=== PATIENT | female | born 1945 | race Caucasian/White ===

== ENCOUNTER → 2018-05-13 | Outpatient (CLI) | payer MEDICARE | END | disposition home or self-care (01) | LOC: KCIC MAMMO 08:46 | DX: N63.21 Unspecified lump in the left breast, upper outer quadrant (principal) | CPT/HCPCS: 76641; 77065; G0279 ==

== ENCOUNTER → 2018-10-18 | Outpatient (CLI) | payer MEDICARE ==
[~2018-10-18] MED LIST: LOSA1TAB25 PO; METF500T16 PO; METO-239 PO
--- NOTE | 2018-10-18 11:52 | RAD ---
EXAM: Pelvis and left hip, 2 views. HISTORY: Groin pain. COMPARISON: None. FINDINGS: A frontal view the pelvis and frog-leg view the left hip are obtained. There is left hip joint space narrowing with degenerative subchondral sclerosis, subchondral cyst formation and marginal spurring. There is degenerative change of the lower lumbar levels. IMPRESSION: 1. Mild left and minimal right hip osteoarthritis. 2. No acute osseous finding. Electronically signed by: Natacha Biswas MD (10/18/2018 11:48 AM) [facility]
== END | disposition home or self-care (01) ==
LOC: RAD 11:19
PROVIDERS: ATTEND Physical Medicine & Rehabilitation
DX: M16.0 Bilateral primary osteoarthritis of hip (principal)
CPT/HCPCS: 73501

== ENCOUNTER → 2018-10-19 | Outpatient (CLI) | payer MEDICARE ==
[~2018-10-19] MED LIST changes: +BUPIVACAINE MPF 0.5% 10 ML VIAL for KCIC. IM ONE; +IOHEXOL 300 MG/ML 50 ML VIAL. INT ART ONE; +LIDOCAINE 1% Multi-Dose 20 ML VIAL. IM ONE; +methylPREDNISolone ACETATE 40 MG/ML VIAL. INT ART ONE
--- NOTE | 2018-10-19 14:38 | KCIC ---
EXAM: Left hip injection WITH Fluoroscopic guidance DATE: 10/19/2018 1:00 PM CLINICAL HISTORY: Left hip pain. Left hip osteoarthritis. Back pain. History of knee arthroplasty. COMPARISON: Pelvic radiographs 10/18/2018 TECHNIQUE: The patient was informed of the indications and alternatives for this procedure as well as risks and benefits. No immediate contraindication identified. The patient provided informed, written consent. Laterality was confirmed by the entire team following a time out. Following initial left hip joint localization, a suitable area was sterilely prepped and draped. Local anesthesia was administered with 1% xylocaine. With intermittent fluoroscopic observation, a 22-gauge spinal needle was advanced into the left hip joint sheath/capsule with confirmation of intra-synovial position with infusion of less than 1 cc iodinated contrast. Subsequent infusion cocktail containing 1 mL of 80 mg/mL Depo-Medrol, 3 mL of lidocaine 1% and 3 mL bupivacaine 0.5%. Hemostasis with local pressure. Local clinical exam negative for immediate complication. Patient informed re local potential signs or symptoms that may indicate need to return to ER/Ordering physician for further evaluation. Patient informed re precautionary measures after intra-synovial injection of anesthetic. Patient informed regarding potential for short term increase local symptomatology due to steroid flare. Patient expressed understanding. Performing Physicians: Dr. Garfield Francois Blood Loss: 0 cc Total Fluoroscopy time: 9 seconds Total spot images taken: 0 IMPRESSION: Successful intra-synovial injection left hip joint with steroid and anesthetic per clinical request. Electronically signed by: Román Francois MD (10/19/2018 2:35 PM) [facility]
== END | disposition home or self-care (01) ==
LOC: KCIC 12:40
PROVIDERS: ATTEND Physical Medicine & Rehabilitation
DX: M16.12 Unilateral primary osteoarthritis, left hip (principal); Z79.899 Other long term (current) drug therapy
CPT/HCPCS: 20610; 77002; J1030; Q9967

== ENCOUNTER → 2018-11-17 | Outpatient (CLI) | payer MEDICARE ==
[~2018-11-17] MED LIST changes: -BUPIVACAINE MPF 0.5% 10 ML VIAL for KCIC. IM ONE; -IOHEXOL 300 MG/ML 50 ML VIAL. INT ART ONE; -LIDOCAINE 1% Multi-Dose 20 ML VIAL. IM ONE; -methylPREDNISolone ACETATE 40 MG/ML VIAL. INT ART ONE
--- NOTE | 2018-11-17 10:44 | KCIC ---
Bilateral diagnostic digital mammograms with 3-D tomosynthesis: Reason for examination: Follow-up nodule. Comparison is made to previous studies dated back to 08/07/2014. Bilateral mammograms in CC and oblique projections were obtained with 2-D imaging and 3-D tomosynthesis imaging on a Siemens Inspiration unit and reviewed on the workstation. Interpretation was made with the benefit of CAD. The skin and nipples show no abnormalities. No abnormal axillary lymph nodes are seen. The breast parenchyma shows scattered fatty and fibroglandular density. (Breast density: Category B.) There continues to be asymmetric parenchyma in the subareolar 12:00 position of the left breast anteriorly which is stable. There is a small nodule consistent with an intramammary lymph node. There are no new dominant masses, suspicious calcifications or architectural distortion. Impression: No evidence of malignancy. Ultrasound to follow. BI-RAD Category 0: Incomplete. Needs additional imaging evaluation. Left breast ultrasound: Comparison is made to previous study dated 05/13/2018. Ultrasound examination of the left breast was performed in the areas of previous concern and at the left axilla. There continues to be focal dense fibroglandular tissue in the 2:00 position 3 cm from the nipple contains some ductal dilatation fibrocystic change. This appears to be stable. At the 2:30 position 7 cm from the nipple, there continues to be 1.4 cm hypoechoic lesion consistent with a probable fibroadenoma. There is a small 3.4 mm fibrocystic lesion at the 2:30 position 5 cm from the nipple. This is stable. There are no suspicious lesions identified. No abnormal appearing lymph nodes are seen. IMPRESSION: Stable nodule at the 2:30 position 7 cm from the nipple which probably represents a fibroadenoma. Fibrocystic change at the 2:30 position 5 cm from the nipple which is stable. No suspicious abnormalities seen. Recommend continued 6 month sonographic follow-up. BI-RADS Category 3: Probably Benign. "Our facility is accredited by the [employer] Mammography Program." This patient's information has been entered into a reminder system for the patient to be notified with the results of her examination and a target date for the next mammogram. Electronically signed by: Tori Garcia MD (11/17/2018 10:40 AM) [facility]
== END | disposition home or self-care (01) ==
LOC: KCIC MAMMO 09:00
PROVIDERS: ATTEND Obstetrics & Gynecology
DX: R92.8 Other abnormal and inconclusive findings on diagnostic imaging of breast (principal); N63.11 Unspecified lump in the right breast, upper outer quadrant
CPT/HCPCS: 76641; 77066; G0279; 77062

== ENCOUNTER → 2019-04-06 | Outpatient (CLI) | payer MEDICARE ==
--- NOTE | 2019-04-06 08:37 | KCIC ---
EXAM: Left breast sonogram. HISTORY: 73-year-old female presents for 6 month follow-up evaluation of suspected benign lesions within the left breast demonstrated on a sonogram dated 11/17/2018. TECHNIQUE: Sonographic imaging of the left breast including all 4 quadrants and the retroareolar region was performed. COMPARISON: 11/17/2018. FINDINGS: There is focal fibrocystic change at the 2:30 position 7 cm from the nipple. The previously demonstrated 1.4 cm hypoechoic lesion appears to blend with surrounding breast parenchyma, favoring a benign fibrocystic lesion rather than fibroadenoma or alternative solid lesion. Similarly, the previously demonstrated suspected fibrocystic lesion measuring 3.4 mm at the 2:30 position 5 cm from the nipple is no longer conspicuous. There is a 4.5 mm nodule with internal echogenicity at the 3:00 position 6 cm from the nipple, the appearance of which favors an intramammary lymph node with benign fatty hilum. IMPRESSION: 1. Decreased conspicuity of a previously suspected fibroadenoma at the 2:30 position 7 cm from the nipple. This appears to blend with surrounding parenchyma on the current exam, favoring a benign fibrocystic lesion superimposed on fibrocystic changes. Similarly, the previously suspected tiny fibrocystic lesion at the 2:30 position 5 cm from the nipple is no longer seen. 2. Small suspected intramammary lymph node at the 3:00 position 6 cm from the nipple. This was not appreciated on the prior exam. 3. BI-RADS Category 3: Probably benign finding(s). Precautionary short-term follow up with a left breast sonogram in 7 months is recommended to confirm benignity and correspond with a previously established bilateral mammography interval. Electronically signed by: Natacha Biswas MD (04/06/2019 8:34 AM) [facility]
== END | disposition home or self-care (01) ==
LOC: KCIC US 07:51
PROVIDERS: ATTEND Obstetrics & Gynecology
DX: N64.89 Other specified disorders of breast (principal)
CPT/HCPCS: 76641

== ENCOUNTER → 2019-11-11 | Outpatient (CLI) | payer MEDICARE ==
[2019-10-25 12:47] VITALS: BP 111/72
--- NOTE | 2019-11-11 16:35 | RAD ---
ULTRASOUND-GUIDED FINE-NEEDLE ASPIRATION OF THE RIGHT LOBE OF THE THYROID GLAND History: Diffuse heterogeneous enlargement of the right lobe of the thyroid gland by a thyroid nodule. Procedure: The patient provided both verbal and written consent after the procedure and possible complications including bleeding and infection were explained. A timeout was performed which confirmed the name of the patient and the date of and the type of procedure and the side of the procedure. Allergies to medications were reviewed. Sonography of the thyroid gland was performed and an appropriate skin felix was made. The anterior aspect of the right side of the neck was prepped and draped in the usual sterile fashion with ChloraPrep. A total of 2 cc of 1% lidocaine was utilized for local anesthesia. Using sterile technique and ultrasound guidance, 4 separate 25-gauge fine-needle aspirations of the solid nodule of the right lobe of the thyroid gland were performed. Sonographic spot images were performed. These aspirations were processed immediately by the pathologist Dr. Jet Benz. Small superficial hematoma was noted and manual pressure was applied for 5 minutes. Hemostasis was deemed adequate. Post procedure sonography demonstrated a small superficial hematoma. The patient tolerated the procedure well without complication otherwise. Sterile Band-Aid was applied to right side of the neck. The patient was given instructions to return to the emergency room if there is significant swelling or bleeding in the neck. The patient was instructed to take Tylenol for any discomfort and to apply ice to the right side of the neck for any swelling. IMPRESSION: Ultrasound-guided fine-needle aspiration biopsy of the solid nodule of the right lobe of the thyroid gland was performed without complication. Follow-up will be with the patient's physician. ULTRASOUND-GUIDED FINE-NEEDLE ASPIRATION OF THE LEFT LOBE OF THE THYROID GLAND History: Diffuse heterogeneous enlargement of the left lobe of the thyroid gland by thyroid nodule. Procedure: The patient provided both verbal and written consent after the procedure and possible complications including bleeding and infection were explained. A timeout was performed which confirmed the name of the patient and the date of and the type of procedure and the side of the procedure. Allergies to medications were reviewed. Sonography of the thyroid gland was performed and an appropriate skin felix was made. The anterior aspect of the left side of the neck was prepped and draped in the usual sterile fashion with ChloraPrep. A total of 2 cc of 1% lidocaine was utilized for local anesthesia. Using sterile technique and ultrasound guidance, 4 separate 25-gauge fine-needle aspirations of the solid nodule of the left lobe of the thyroid gland were performed. Sonographic spot images were performed. These aspirations were processed immediately by the pathologist Dr. Jet Benz. Hemostasis was deemed adequate after 3 minutes of manual pressure. Post procedure sonography demonstrated no significant hematoma. The patient tolerated the procedure well without complication. Sterile Band-Aid was applied to left side of the neck. The patient was given instructions to return to the emergency room if there is significant swelling or bleeding in the neck. The patient was instructed to take Tylenol for any discomfort and to apply ice to the left side of the neck for any swelling. IMPRESSION: Ultrasound-guided fine-needle aspiration biopsy of the solid nodule of the left lobe of the thyroid gland was performed without complication. Follow-up will be with the patient's physician. Note-a third nodule was reported on an outside thyroid ultrasound study. Sonography today demonstrated an area of acoustic shadowing within the lower aspect of the neck corresponding to the third nodule seen previously. This represents tracheal cartilage within the lower aspect of the neck. There is additional coarse calcification within the right lobe which is separate from this. Therefore, no discrete third nodule is identified and therefore, no third nodule was biopsied. Electronically signed by: Bruce Matthew MD (11/11/2019 4:32 PM) [facility]
--- NOTE | 2019-11-15 14:06 | PATHOLOGY ---
Note [facility] Accession Number: [id number] TESTS RESULT FLAG UNITS REF RANGE LAB Clinician Provided Cytology Information No. of containers..01 Other (Miscellaneous) Source: RT SUP THYROID DIAGNOSIS: RT SUP THYROID NEGATIVE FOR MALIGNANT CELLS. BETHESDA CATEGORY II. SPECIMEN CONSISTS OF ABUNDANT BENIGN FOLLICULAR CELLS, HEMOSIDERIN-LADEN MACROPHAGES, SCANT COLLOID AND BLOOD. THE PATTERN IS CONSISTENT WITH ADENOMATOID NODULE. COLLOID IS PRESENT. Pathologist ICD10: 02 E04.1 Signed out by: Jl Tello MD, Pathologist NPI- [id number] Performed by: Lea Pat, Front Desk Supervisor ([facility]) Gross description: 01 30MOL, PINK, CLOUDY /LCS 11/14/2019 1545 Local FLAG LEGEND: L-Low Normal,H-High Normal,LL-Alert Low,HH-Alert High <-Panic Low,>-Panic High,A-Abnormal,AA-Critical Abnormal Performed at: [facility] [address] [place] [address] Gerardo Dorado MD, 02 [facility] [address] [place] [address] Jet Benz MD, Specimen Comment: A courtesy copy of this report has been sent to [phone] Specimen Comment: [id number] Specimen Comment: Report sent to Performed at: [address], [place], [place] [id number] MD Gerardo Dorado MD Phone: [phone]
--- NOTE | 2019-11-15 14:06 | PATHOLOGY ---
Note [facility] Accession Number: [id number] TESTS RESULT FLAG UNITS REF RANGE LAB Clinician Provided Cytology Information No. of containers..01 Other (Miscellaneous) Source: LT THYROID DIAGNOSIS: LT THYROID NEGATIVE FOR MALIGNANT CELLS. BETHESDA CATEGORY II. SPECIMEN CONSISTS OF BENIGN FOLLICULAR CELLS, HEMOSIDERIN-LADEN MACROPHAGES, COLLOID, AND BLOOD. THIS PATTERN IS CONSISTENT WITH A BENIGN FOLLICULAR NODULE. THIS INTERPRETATION INCLUDES EVALUATION OF A CELL BLOCK. Pathologist ICD10: 02 E04.1 Signed out by: 02 Jl Tello MD, Pathologist NPI- [id number] Performed by: Peg Dobson, Pack Worker ([facility]) Gross description: 01 30ML, PINK, CLEAR /LCS 11/14/2019 1547 Local FLAG LEGEND: L-Low Normal,H-High Normal,LL-Alert Low,HH-Alert High <-Panic Low,>-Panic High,A-Abnormal,AA-Critical Abnormal Performed at: [facility] [address] [place] [address] [address] [place] [address] Gerardo Dorado MD, 02 [facility] [address] [place] [address] Jet Benz MD, Specimen Comment: [id number] Performed at: [address], [place], [place] [id number] MD Gerardo Dorado MD Phone: [phone]
== END | disposition home or self-care (01) ==
LOC: US 12:45
PROVIDERS: ATTEND Family Medicine
DX: E04.1 Nontoxic single thyroid nodule (principal)
CPT/HCPCS: 10005; 10006; 60300; 76942; 88173; 88305

== ENCOUNTER → 2019-11-28 | Outpatient (CLI) | payer MEDICARE ==
[2019-10-25 12:47] VITALS: BP 111/72
--- NOTE | 2019-11-28 14:28 | KCIC ---
Bilateral diagnostic digital mammograms with 3-D tomosynthesis: Reason for examination: Follow-up asymmetry. Comparison is made to previous studies dated 11/17/2018 and 05/13/2018. Bilateral mammograms in CC and oblique projections were obtained with 2-D imaging and 3-D tomosynthesis imaging on a Siemens Inspiration unit and reviewed on the workstation. Interpretation was made with the benefit of CAD. The skin and nipples show no abnormalities. No abnormal axillary lymph nodes are seen. The breast parenchyma shows scattered fatty and fibroglandular density. (Breast density: Category B.) There continues to be some asymmetric parenchyma in the left breast anteriorly which is stable. There R small intramammary lymph nodes bilaterally which are stable. There are no new dominant masses, suspicious calcifications or architectural distortion. Impression: No evidence of malignancy. Ultrasound to follow. BI-RAD Category 0: Incomplete. Needs additional imaging evaluation. Left breast ultrasound: Comparison is made to previous study dated 04/06/2019 and 11/17/2018. Ultrasound examination of the left breast and axilla was performed. There continues to be a small nodule consistent with an intramammary lymph node at the 3:00 position 6 cm from the nipple measuring approximately 4 mm in greatest dimension which is unchanged. There are no other cystic or solid nodules seen. No abnormal appearing lymph nodes are seen in the axilla. IMPRESSION: Small intramammary lymph node at the 3:00 position. No suspicious abnormality seen. Recommend routine mammographic follow-up. BI-RADS Category 2: Benign. "Our facility is accredited by the [employer] Mammography Program." This patient's information has been entered into a reminder system for the patient to be notified with the results of her examination and a target date for the next mammogram. Electronically signed by: Tori Garcia MD (11/28/2019 2:25 PM) [facility]
== END | disposition home or self-care (01) ==
LOC: KCIC MAMMO 12:53
PROVIDERS: ATTEND Obstetrics & Gynecology
DX: D48.62 Neoplasm of uncertain behavior of left breast (principal); R59.0 Localized enlarged lymph nodes
CPT/HCPCS: 76641; 77066; G0279; 77062

== ENCOUNTER 2020-01-01 18:43 | Emergency (ER) | payer MEDICARE ==
[~2020-01-01] VITALS: Ht 167.6 cm; Wt 116.0 kg
[~2020-01-01 18:43] MED LIST changes: +ASPI-630 PO; +ATOR20TA58 PO; +CELE200C PO; +CHOL200027 PO; +CYAN250012 PO; +CYCL1DRO EACHEYE; +HYDR50TA6 PO; +LOSA100T14 PO; +METO25TA4 PO; +MULT-121 PO; +OMEG-150 PO; +OMEP40CA45 PO; +OXYC5CAP PO; +UBID50TA PO; +VENL75TA PO; +VENTOLIN HFA18 GM INH; +WARF-31 PO
[2020-01-01 18:50] VITALS: BP 162/75
--- NOTE | 2020-01-01 19:05 | PHYS DOC ---
Past Medical History Smoking Status: Never Smoker Adult General Chief Complaint Chief Complaint: POST-OP PROBLEM HPI HPI 74-year-old female with history of diabetes, recent left hip replacement approximately 3 weeks ago presents to the emergency department with complaints of bleeding from operative site. Patient states this started prostate half-hour ago. She is bleeding through couple pads to the area, appears to be bruising on examination. Patient does take Coumadin. She states she was seen by Dr. Shen on 28 December with plans to see him this Thursday. Patient denies any fever, chills. States physical therapy and rehabilitation have been going well status post replacement. She was concerned given the bruising and continued bleeding. She denies any chest pain, shortness breath, nausea, vomiting. Review of Systems Review of Systems Constitutional: Denies fever or chills [] Respiratory: Denies cough or shortness of breath [] Cardiovascular: No additional information not addressed in HPI [] GI: Denies abdominal pain, nausea, vomiting, bloody stools or diarrhea [] Musculoskeletal: bleeding from left hip surgical site Neurologic: Denies headache, focal weakness or sensory changes [] All other systems were reviewed and found to be within normal limits, except as documented in this note. Allergies Allergies Allergies Coded Allergies Type Severity Reaction Last Updated Verified No Known Drug Allergies 12/13/19 No Physical Exam Physical Exam Constitutional: Well developed, well nourished, no acute distress, non-toxic appearance. [] Cardiovascular:Heart rate regular rhythm, no murmur [] Lungs & Thorax: Bilateral breath sounds clear to auscultation [] Skin: Warm, dry, no erythema, no rash. [] Back: No tenderness, no CVA tenderness. [] Extremities: No tenderness, no edema, surgical site left hip with some sutures removed per melissa, bleeding/oozing from surgical site, no dehiscence appreciated [] Neurologic: Alert and oriented X 3, no focal deficits noted. [] Psychologic: Affect normal, judgement normal, mood normal. [] Current Patient Data Vital Signs Vital Signs Date Time Temp Pulse Resp B/P (MAP) Pulse Ox O2 Delivery O2 Flow Rate FiO2 01/01/20 18:50 98.1 80 27 162/75 (104) 98 Room Air 98.1 Lab Values Laboratory Tests Test 01/01/20 19:51 White Blood Count 3.3 x10^3/uL (4.0-11.0) L Red Blood Count 2.81 x10^6/uL (3.50-5.40) L Hemoglobin 8.5 g/dL (12.0-15.5) L Hematocrit 25.1 % (36.0-47.0) L Mean Corpuscular Volume 89 fL (79-100) Mean Corpuscular Hemoglobin 30 pg (25-35) Mean Corpuscular Hemoglobin Concent 34 g/dL (31-37) Red Cell Distribution Width 14.2 % (11.5-14.5) Platelet Count 311 x10^3/uL (140-400) Neutrophils (%) (Auto) 57 % (31-73) Lymphocytes (%) (Auto) 28 % (24-48) Monocytes (%) (Auto) 10 % (0-9) H Eosinophils (%) (Auto) 4 % (0-3) H Basophils (%) (Auto) 1 % (0-3) Neutrophils # (Auto) 1.9 x10^3/uL (1.8-7.7) Lymphocytes # (Auto) 0.9 x10^3/uL (1.0-4.8) L Monocytes # (Auto) 0.3 x10^3/uL (0.0-1.1) Eosinophils # (Auto) 0.1 x10^3/uL (0.0-0.7) Basophils # (Auto) 0.0 x10^3/uL (0.0-0.2) Prothrombin Time 23.4 SEC (11.7-14.0) H Prothrombin Time INR 2.1 (0.8-1.1) H Sodium Level 141 mmol/L (136-145) Potassium Level 3.9 mmol/L (3.5-5.1) Chloride Level 106 mmol/L (98-107) Carbon Dioxide Level 28 mmol/L (21-32) Anion Gap 7 (6-14) Blood Urea Nitrogen 22 mg/dL (7-20) H Creatinine 0.9 mg/dL (0.6-1.0) Estimated GFR (Cockcroft-Gault) 61.5 BUN/Creatinine Ratio 24 (6-20) H Glucose Level 116 mg/dL (70-99) H Calcium Level 8.7 mg/dL (8.5-10.1) Total Bilirubin 0.4 mg/dL (0.2-1.0) Aspartate Amino Transferase (AST) 23 U/L (15-37) Alanine Aminotransferase (ALT) 19 U/L (14-59) Alkaline Phosphatase 85 U/L (46-116) Total Protein 6.2 g/dL (6.4-8.2) L Albumin 2.8 g/dL (3.4-5.0) L Albumin/Globulin Ratio 0.8 (1.0-1.7) L Laboratory Tests 01/01/20 19:51 Laboratory Tests 01/01/20 19:51 EKG EKG [] Radiology/Procedures Radiology/Procedures [][facility] [address] [place] [address] IMAGING REPORT Signed PATIENT: JEAN MÁRQUEZ ACCOUNT: [id number] : 1945 LOCATION: ER AGE: 74 SEX: F EXAM STATUS: PRE ER ORD. PHYSICIAN: GIO ARENAS MD REASON: recent hip replacement, bleeding from surgical site, ?hematoma PROCEDURE: CT LOWER EXTREMITY WO LEFT Exam: CT left lower extremity without contrast INDICATION: Recent hip replacement TECHNIQUE: Sequential axial images through the left lower extremity obtained without IV contrast. Sagittal and coronal reformatted images were reconstructed from the axial data and reviewed. Comparisons: None FINDINGS: Diverticulosis in the visualized sigmoid colon. Otherwise, visualized pelvic structures are unremarkable. Right hip arthroplasty changes are noted. There is mild soft tissue swelling at the level of the hip with a ill-defined amount of fluid laterally in the subcutaneous fat measuring approximately 9.5 x 2.0 cm in transverse dimension. Right hip arthroplasty changes are also noted. IMPRESSION: 1. Right hip and right knee arthroplasty changes. 2. Small amount of fluid is noted in the subcutaneous fat lateral to the hip arthroplasty measuring approximately 9.5 x 2.0 cm, likely tracking to the skin surface. Exposure: One or more of the following in the visualized dose reduction techniques were utilized for this examination: 1. Automated exposure control 2. Adjustment of the MA and/or KV according to patient size 3. Use of iterative of reconstructive technique Electronically signed by: Jaime Martins MD (01/01/2020 7:41 PM) [id number] DICTATED and SIGNED BY: JAIME MARTINS MD DATE: 01/01/201940 Course & Med Decision Making Course & Med Decision Making Pertinent Labs and Imaging studies reviewed. (See chart for details) []74-year-old female with history of diabetes, recent left hip replacement approximately 3 weeks ago presents to the emergency department with complaints of bleeding from operative site. Patient states this started prostate half-hour ago. She is bleeding through couple pads to the area, appears to be bruising on examination. Patient does take Coumadin. She states she was seen by Dr. Shen on 28 December with plans to see him this Thursday. Patient denies any fever, chills. States physical therapy and rehabilitation have been going well status post replacement. She was concerned given the bruising and continued bleeding. She denies any chest pain, shortness breath, nausea, vomiting. CT findings reviewed INR 2.1, hgb 8.[address] HEAD - will see patient in office tomorrow Pressure dressing/surgifoam applied Discussed with patient/family Dragon Disclaimer Dragon Disclaimer This electronic medical record was generated, in whole or in part, using a voice recognition dictation system. Departure Departure Impression: Primary Impression: Post-op bleeding Disposition: HOME, SELF-CARE Condition: STABLE Referrals: MICKI ORDOÑEZ MD (PCP) Patient Instructions: Postsurgical Bleeding Additional Instructions: Recommend calling DR. HEAD office in AM for follow up Recommend continuing current coumadin as directed INR 2.1, Hgb 8.5 CT without evidence of inflammatory process - 9x2cm fluid collection No signs of infection appreciated Problem Qualifiers Primary Impression: Post-op bleeding Surgical complication system/body Area: musculoskeletal system Procedure type: musculoskeletal Qualified Codes: M96.830 - Postprocedural hemorrhage of a musculoskeletal structure following a musculoskeletal system procedure GIO ARENAS MD Jan 01, 2020 19:05
--- NOTE | 2020-01-01 19:44 | RAD ---
Exam: CT left lower extremity without contrast INDICATION: Recent hip replacement TECHNIQUE: Sequential axial images through the left lower extremity obtained without IV contrast. Sagittal and coronal reformatted images were reconstructed from the axial data and reviewed. Comparisons: None FINDINGS: Diverticulosis in the visualized sigmoid colon. Otherwise, visualized pelvic structures are unremarkable. Right hip arthroplasty changes are noted. There is mild soft tissue swelling at the level of the hip with a ill-defined amount of fluid laterally in the subcutaneous fat measuring approximately 9.5 x 2.0 cm in transverse dimension. Right hip arthroplasty changes are also noted. IMPRESSION: 1. Right hip and right knee arthroplasty changes. 2. Small amount of fluid is noted in the subcutaneous fat lateral to the hip arthroplasty measuring approximately 9.5 x 2.0 cm, likely tracking to the skin surface. Exposure: One or more of the following in the visualized dose reduction techniques were utilized for this examination: 1. Automated exposure control 2. Adjustment of the MA and/or KV according to patient size 3. Use of iterative of reconstructive technique Electronically signed by: Jaime Hargrove MD (01/01/2020 7:41 PM) [id number]
[2020-01-01 20:00] LABS: BASO % 1 % (0-3); EOS # 0.1 x10^3/uL (0.0-0.7); EOS % 4 % (0-3); HEMATOCRIT 25.1 % (36.0-47.0); HEMOGLOBIN 8.5 g/dL (12.0-15.5); LYMPH # 0.9 x10^3/uL (1.0-4.8); LYMPH % 28 % (24-48); MEAN CORPUSCULAR HEMOGLOBIN 30 pg (25-35); MEAN CORPUSCULAR HGB CONC 34 g/dL (31-37); MEAN CORPUSCULAR VOLUME 89 fL (79-100); MONO # 0.3 x10^3/uL (0.0-1.1); MONO % 10 % (0-9); NEUT # 1.9 x10^3/uL (1.8-7.7); NEUT % 57 % (31-73); PLATELET COUNT 311 x10^3/uL (140-400); RED BLOOD COUNT 2.81 x10^6/uL (3.50-5.40); RED CELL DISTRIBUTION WIDTH 14.2 % (11.5-14.5); WHITE BLOOD COUNT 3.3 x10^3/uL (4.0-11.0)
[2020-01-01 20:08] LABS: CALCIUM 8.7 mg/dL (8.5-10.1); CREATININE 0.9 mg/dL (0.6-1.0); GFR 61.5; POTASSIUM 3.9 mmol/L (3.5-5.1); PROTHROMBIN TIME PATIENT 23.4 SEC (11.7-14.0)
[2020-01-01 20:15] LABS: ALBUMIN 2.8 g/dL (3.4-5.0); ALBUMIN/GLOBULIN RATIO 0.8 (1.0-1.7); TOTAL BILIRUBIN 0.4 mg/dL (0.2-1.0); TOTAL PROTEIN 6.2 g/dL (6.4-8.2)
[2020-01-01] MEDS: GELATIN SPONGE SIZE 12-7MM SPONGE. TP ONE (20:45)
== END 2020-01-01 21:15 | disposition home or self-care (01) ==
LOC: ER 18:43
DX: M96.830 Postprocedural hemorrhage of a musculoskeletal structure following a musculoskeletal system procedure (principal); E11.9 Type 2 diabetes mellitus without complications; Z96.642 Presence of left artificial hip joint; Y83.8 Other surgical procedures as the cause of abnormal reaction of the patient, or of later complication, without mention of misadventure at the time of the procedure; Y92.89 Other specified places as the place of occurrence of the external cause
CPT/HCPCS: 36415; 73700; 80053; 85025; 85610; 99285-25

== ENCOUNTER 2020-01-09 12:56 | Inpatient (IN) | payer MEDICARE ==
[2020-01-09] VITALS (8 sets, daily range): BP systolic 89–134; BP diastolic 37–54
[~2020-01-09] VITALS: Ht 167.6 cm; Wt 109.8 kg
[2020-01-09] MEDS ORDERED: IV RINGERS,LACTATED 1000ML 1,000 ML IV SCH (15:32)
[2020-01-09] MEDS ORDERED: LIDOCAINE 1% PF 2 ML VIAL. ID PRN (15:45)
[2020-01-09] MEDS ORDERED: PROCHLORPERAZINE 10 MG/2 ML VIAL. IV PRN (15:45)
[2020-01-09] MEDS ORDERED: ONDANSETRON PF 4 MG/2 ML VIAL. IV PRN (15:45)
[2020-01-09] MEDS ORDERED: MORPHINE SULFATE 2 MG/ML VIAL. IV PRN ×2 (15:45→19:00)
[2020-01-09] MEDS ORDERED: fentaNYL PF VIAL 100 MCG/2 ML VIAL IV PRN ×2 (15:45→19:00)
[2020-01-09] MEDS ORDERED: HYDROmorphone 2 MG/ML VIAL IV PRN (15:45)
[2020-01-09 17:12] LABS: BASO % 1 % (0-3); EOS # 0.1 x10^3/uL (0.0-0.7); EOS % 3 % (0-3); HEMATOCRIT 26.2 % (36.0-47.0); HEMOGLOBIN 8.8 g/dL (12.0-15.5); LYMPH # 1.2 x10^3/uL (1.0-4.8); LYMPH % 30 % (24-48); MEAN CORPUSCULAR HEMOGLOBIN 30 pg (25-35); MEAN CORPUSCULAR HGB CONC 34 g/dL (31-37); MEAN CORPUSCULAR VOLUME 88 fL (79-100); MONO # 0.4 x10^3/uL (0.0-1.1); MONO % 10 % (0-9); NEUT # 2.2 x10^3/uL (1.8-7.7); NEUT % 56 % (31-73); PLATELET COUNT 305 x10^3/uL (140-400); RED BLOOD COUNT 2.97 x10^6/uL (3.50-5.40)
[2020-01-09 17:18] LABS: POTASSIUM 3.4 mmol/L (3.5-5.1)
[2020-01-09 17:21] LABS: PROTHROMBIN TIME PATIENT 22.9 SEC (11.7-14.0)
[2020-01-09] MEDS ORDERED: fentaNYL PF VIAL 100 MCG/2 ML VIAL ONE (17:22)
[2020-01-09] MEDS ORDERED: ROCURONIUM 50 MG/5 ML VIAL. ONE (17:22)
[2020-01-09] MEDS ORDERED: PHENYLEPHRINE in 0.9% NACL PF 1 MG/10 ML SYRINGE. IV ONE (17:37)
[2020-01-09] MEDS ORDERED: ONDANSETRON PF 4 MG/2 ML VIAL. ONE (17:43)
[2020-01-09] MEDS ORDERED: DEXAMETHASONE SOD PHOS 4 MG/ML VIAL ONE (17:43)
[2020-01-09] MEDS ORDERED: PROPOFOL 20 ML IV ONE (17:43)
[2020-01-09] MEDS ORDERED: ceFAZolin SODIUM IV Push 1 GM VIAL. IVP ONE ×2 (17:43)
[2020-01-09] MEDS ORDERED: LIDOCAINE 2% PF 5 ML VIAL. ONE (17:43)
[2020-01-09] MEDS ORDERED: NEOSTIGMINE METHYLSULFATE 5 MG/5 ML SYRINGE. ONE (18:42)
[2020-01-09] MEDS ORDERED: GLYCOPYRROLATE 1 MG/5 ML VIAL. ONE ×2 (18:42→18:43)
[2020-01-09] MEDS ORDERED: diphenhydrAMINE 50 MG/ML VIAL IV PRN (19:00)
[2020-01-09] MEDS ORDERED: DEXTROSE 50% 25 GM / 50ML DISP.SYRIN. IV PRN (19:00)
[2020-01-09] MEDS ORDERED: 0.9 % SODIUM CHLORIDE 10 ML DISP.SYRIN. IV PRN (19:00)
[2020-01-09] MEDS ORDERED: PROCHLORPERAZINE 5 MG TABLET. PO PRN (19:00)
[2020-01-09] MEDS ORDERED: oxyCODONE IR 5 MG TABLET PO PRN (19:00)
[2020-01-09] MEDS ORDERED: SEVOFLURANE 61 TO 120 MINUTES. IH ONE (19:00)
[2020-01-09] MEDS ORDERED: CALCIUM CARBONATE 500 MG TAB.CHEW PO PRN (19:00)
[2020-01-09] MEDS ORDERED: ZOLPIDEM 5 MG TABLET. PO PRN (19:00)
[2020-01-09] MEDS ORDERED: ALBUTEROL SULFATE 2.5 MG/3 ML NEBU. NEB PRN (19:15)
[2020-01-09] MEDS: fentaNYL PF VIAL 100 MCG/2 ML VIAL IV PRN ×2 (19:16→19:26)
--- NOTE | 2020-01-09 19:23 | PDOC4 ---
Operative Note Operative Note Date of surgery: 01/09/2020 Preoperative diagnosis: Left hip wound drainage status post left total hip arthroplasty Postoperative diagnosis: Left hip seroma/hematoma Operative procedure: Irrigation debridement of left hip wound Surgeon: Ac Anesthesia: Gen. Estimated blood loss: 50 mL Complications: None Intraoperative culture sent for aerobic anaerobic Gram stain Operative indications: Lawanda is approximately one-month status post left total hip arthroplasty that required removal of a Hemovac drain fragment a couple of days postoperatively when it became stuck during removal. Otherwise postoperatively she progressed very well along with her ambulation and pain relief and had no drainage fever chills or other problems until return to a clinic visit where she had sutures removed and then experienced some persistent drainage from a small area just distal to the midpoint of her incision. That seemed to slow down and resolve over the next several days but then she presented to the emergency department with the sudden gush of some fluid serosanguineous in nature and she underwent a CT scan which showed a seroma hematoma collection. We decided at that point on some careful observation and prompt clinic follow-up and it appeared that perhaps most of the fluid collection had evacuated at that time as minimal drainage was expressed in clinic. Her wound was dressed and she was put on some prophylactic oral antibiotic and initially had minimal drainage but on subsequent follow-up drainage continued culminating in her visit today where I discussed with her recommended exploration due to the persistent drainage. She agreed and was direct admitted to the hospital with plans to proceed with exploration of her hip as soon as nothing by mouth status allowed today Operative text: Patient was identified procedure verified patient placed in the supine position on the operating table. After adequate amounts of general anesthesia were administered she was placed in the decubitus position left side up using the Stulberg hip positioner and all bony prominences were well-padded. Distal nylon sutures were removed and the left hip was then prepped and draped in the standard sterile fashion. After timeout was performed patient procedure identified and verified the hip wound was explored and found to have significant presence of seroma/hematoma all superficial to the fascia which appeared to be intact as I was unable to probe deeply into the joint. Swab cultures were obt ained at the deepest position of the seroma position and sharp debridement was carried out with rongeurs of any hematoma and any residual absorbable suture material. Antibiotics were withheld until cultures were obtained and then 2 g of IV cefazolin were given intraoperatively. Irrigation was carried out with normal saline solution and pulse lavage no purulence or devitalized tissue was noted and good bleeding tissues were noted throughout and closure carried out with running #1 PDS suture just superficial to the fascia #2-0 PDS suture in a buried fashion more superficially layered and skin closure with 3-0 nylon suture in primarily a vertical mattress fashion to obtain good wound apposition. I elected to place a wound VAC with a boundary layer given the significant amount of serous fluid apparent in her tissues. Wound VAC obtain good suction and she was returned to recovery room in stable condition having tolerated procedure well. LINDSEY KEYES MD Jan 09, 2020 19:23
[2020-01-09] MEDS: METOPROLOL TART IMMED RELEASE 25 MG TABLET. PO SCH (21:00)
[2020-01-09] MEDS: ATORVASTATIN CALCIUM 20 MG TABLET PO SCH (21:18)
[2020-01-09] MEDS: WARFARIN 5 MG TABLET. PO SCH (21:19)
[2020-01-10] MEDS: cycloSPORINE 0.05% OPHTH DROPERETTE. OU SCH ×3 (00:30→20:14)
[2020-01-10 03:00] VITALS: BP 102/46
[2020-01-10] MEDS ORDERED: MAGNESIUM HYDROXIDE 2,400 MG/30 ML ORAL.SUSP. PO PRN (06:00)
[2020-01-10] MEDS: ONDANSETRON PF 4 MG/2 ML VIAL. IV SCH ×4 (06:00→18:00)
[2020-01-10] MEDS: ONDANSETRON ODT 4 MG TAB.RAPDIS. PO SCH ×4 (06:00→18:00)
[2020-01-10] MEDS: IV NORMAL SALINE 1000ML BAG 1,000 ML IV SCH ×2 (06:01→19:30)
[2020-01-10] MEDS: PANTOPRAZOLE 40 MG TABLET.DR. PO SCH (06:06)
[2020-01-10] MEDS: traMADol 50 MG TABLET PO SCH ×3 (06:06→18:00)
[2020-01-10 07:00] VITALS: BP 114/46
[2020-01-10 07:20] LABS: PROTHROMBIN TIME PATIENT 24.1 SEC (11.7-14.0)
[2020-01-10] MEDS ORDERED: cycloSPORINE 0.05% OPHTH DROPERETTE. OU SCH (09:00)
[2020-01-10] MEDS: ACETAMINOPHEN 500 MG TABLET PO SCH ×3 (09:00→20:11)
[2020-01-10] MEDS ORDERED: MULTIVITAMIN PO SCH (09:00)
[2020-01-10] MEDS: LOSARTAN POTASSIUM 50 MG TABLET. PO SCH (09:06)
[2020-01-10] MEDS: SENNOSIDES/DOCUSATE 8.6/50MG TABLET. PO SCH (09:07)
[2020-01-10] MEDS: CELECOXIB 100 MG CAPSULE. PO SCH (09:07)
[2020-01-10] MEDS: METOPROLOL TART IMMED RELEASE 25 MG TABLET. PO SCH ×2 (09:07→20:13)
[2020-01-10] MEDS: VENLAFAXINE 75 MG TABLET. PO SCH (09:07)
[2020-01-10] MEDS: ASPIRIN CHEWABLE 81 MG TABLET. PO SCH (09:07)
[2020-01-10] MEDS: hydroCHLOROthiazide 25 MG TABLET PO SCH (09:07)
[2020-01-10] MEDS: CYANOCOBALAMIN (VITAMIN B-12) 1,000 MCG TABLET. PO SCH (09:07)
[2020-01-10] MEDS: CHOLECALCIFEROL (VITAMIN D3) 1,000 UNIT TABLET PO SCH (09:08)
[2020-01-10] MEDS: FERROUS SULFATE 325 MG TABLET. PO SCH ×2 (09:08→18:07)
[2020-01-10] MEDS: MULTIVITAMIN with MINERAL TABLET. PO SCH (09:08)
[2020-01-10] MEDS: metFORMIN 500 MG TABLET PO SCH ×2 (09:08→18:08)
--- NOTE | 2020-01-10 09:57 | NUR ---
SW following. Discussed with RN. Pt has wound vac, ID consult, wound consult. SW will continue to follow.
--- NOTE | 2020-01-10 10:41 | PDOC ---
Infectious Disease Note Vital Sign Vital Signs Vital Signs Date Time Temp Pulse Resp B/P (MAP) Pulse Ox O2 Delivery O2 Flow Rate FiO2 01/10/20 09:07 80 114/46 01/10/20 08:58 97 10.0 01/10/20 07:00 97.9 18 Room Air 97.9 Labs Lab Laboratory Tests Test 01/09/20 17:01 01/09/20 17:04 01/09/20 19:07 01/10/20 06:17 Glucose (Fingerstick) 77 mg/dL (70-99) 96 mg/dL (70-99) White Blood Count 4.0 x10^3/uL (4.0-11.0) Red Blood Count 2.97 x10^6/uL (3.50-5.40) Hemoglobin 8.8 g/dL (12.0-15.5) Hematocrit 26.2 % (36.0-47.0) Mean Corpuscular Volume 88 fL (79-100) Mean Corpuscular Hemoglobin 30 pg (25-35) Mean Corpuscular Hemoglobin Concent 34 g/dL (31-37) Red Cell Distribution Width 14.0 % (11.5-14.5) Platelet Count 305 x10^3/uL (140-400) Neutrophils (%) (Auto) 56 % (31-73) Lymphocytes (%) (Auto) 30 % (24-48) Monocytes (%) (Auto) 10 % (0-9) Eosinophils (%) (Auto) 3 % (0-3) Basophils (%) (Auto) 1 % (0-3) Neutrophils # (Auto) 2.2 x10^3/uL (1.8-7.7) Lymphocytes # (Auto) 1.2 x10^3/uL (1.0-4.8) Monocytes # (Auto) 0.4 x10^3/uL (0.0-1.1) Eosinophils # (Auto) 0.1 x10^3/uL (0.0-0.7) Basophils # (Auto) 0.0 x10^3/uL (0.0-0.2) Prothrombin Time 22.9 SEC (11.7-14.0) 24.1 SEC (11.7-14.0) Prothromb Time International Ratio 2.1 (0.8-1.1) 2.2 (0.8-1.1) Sodium Level 144 mmol/L (136-145) Potassium Level 3.4 mmol/L (3.5-5.1) Chloride Level 105 mmol/L (98-107) Carbon Dioxide Level 28 mmol/L (21-32) Anion Gap 11 (6-14) Test 01/10/20 08:19 Glucose (Fingerstick) 111 mg/dL (70-99) Objective Assessment pt seen, consult dictated Plan Plan of Care / EVERETTE AYON MD Jan 10, 2020 10:41
[2020-01-10 11:00] VITALS: BP 96/51
[2020-01-10] MEDS ORDERED: VANCOMYCIN 2 GM in IV NORMAL SALINE 500ML BAG 500 ML IV ONE (11:00)
[2020-01-10 11:17] LABS: ALBUMIN 2.7 g/dL (3.4-5.0); C-REACTIVE PROTEIN 18.3 mg/L (0-3.3); CALCIUM 8.4 mg/dL (8.5-10.1); CREATININE 0.7 mg/dL (0.6-1.0); GFR 82.3; POTASSIUM 4.1 mmol/L (3.5-5.1); TOTAL BILIRUBIN 0.3 mg/dL (0.2-1.0); TOTAL PROTEIN 5.4 g/dL (6.4-8.2)
[2020-01-10] MEDS ORDERED: ONDANSETRON ODT 4 MG TAB.RAPDIS. PO PRN (12:00)
[2020-01-10] MEDS ORDERED: ONDANSETRON PF 4 MG/2 ML VIAL. IV PRN (12:00)
--- NOTE | 2020-01-10 12:24 | CONS ---
DATE OF CONSULTATION: 01/10/2020 REQUESTING PHYSICIAN: Dr. Shen REASON FOR CONSULTATION: Possible infection of the left hip. HISTORY OF PRESENT ILLNESS: This is a 74-year-old female who had left total hip arthroplasty done on 12/13/2019 for arthritis. The patient says that when the sutures were removed about a few days after the surgery, she started bleeding and she had been bleeding since then off and on oozing blood. Hence, eventually she was taken to the surgery yesterday and I and D was done. The fascia was intact and it was all superficial and bloody drainage was evacuated and cultures were taken. The patient also received a few days of antibiotics as a part of her visit to Dr. Shen's office, which she does not remember what antibiotics. The patient did have a fever when she visited their office up to 101. The patient now denies any nausea, vomiting, diarrhea, chest pain, or shortness of breath. She denies any hip pain. She denies any other complaints other than the continued oozing of serosanguineous fluid from the hip. PAST MEDICAL HISTORY: Positive for rheumatoid arthritis, osteoarthritis, hypertension, hypothyroidism, valvular insufficiency, TIA in the past, diabetic, history of C. diff, asthma, and sleep apnea. The patient has had bilateral knee replacement done, thyroidectomy done, breast biopsy done, and now she had a jaw surgery done and this left hip replacement. SOCIAL HISTORY: Negative for smoking, alcohol use, or drug use. Lives with her . ALLERGIES: No known drug allergies. CURRENT MEDICATIONS: Reviewed. The patient is on cefazolin. REVIEW OF SYSTEMS: As per HPI. All other systems reviewed and are negative. PHYSICAL EXAMINATION: GENERAL: Alert and oriented female. Not in distress. VITAL SIGNS: Stable and afebrile. HEENT: NAD. NECK: Supple. No JVP. No lymphadenopathy. LUNGS: Clear. HEART: S1, S2 regular. ABDOMEN: Benign. EXTREMITIES: No edema or cyanosis. SKIN: Unremarkable. The patient does have a wound VAC on to the left hip. NEUROLOGIC: The patient is alert, awake, and appropriate. No focal neurologic deficit. LABORATORY DATA: White count is 4000, hemoglobin 8.8, and platelets are normal. Her last sed rate on 12/14/2019 was 33. BUN and creatinine on 01/01/2020 was normal, most recent is not available, which I ordered. Culture is taken and is not available right now, and CT scan from 01/01/2020 had shown this fluid collection measuring 9.5 x 2 cm into that hip. IMPRESSION: 1. Total hip arthroplasty on 12/13/2019. Post total hip arthroplasty, continued serosanguineous drainage and hence incision and drainage done on 01/09/2020. 2. Prediabetic. 3. Hypertension. 4. Hypothyroidism. 5. Obstructive sleep apnea. 6. Rheumatoid arthritis. 7. Osteoarthritis. RECOMMENDATIONS: We will change cefazolin to vancomycin and Zosyn for the time being and get sed rate, CRP, and procalcitonin. Supportive care and wait for the cultures. Discussion with the patient and the done at the bedside in detail. Thank you very much, Dr. Shen, for giving me the opportunity to participate in this patient's care. EVERETTE AYON MD DR: FINESSE/amber JOB#: [id number] / [id number]
[2020-01-10] MEDS: PIPERACILLIN/TAZOBACTAM 3.375 GM in IV NORMAL SALINE 50ML 50 ML IV SCH ×2 (13:21→18:07)
[2020-01-10] MEDS: VANCOMYCIN PER PHARMACY MC PRN ×2 (13:47→13:53)
--- NOTE | 2020-01-10 13:51 | NUR ---
Pharmacy Vancomycin Dosing Note S:Consulted to monitor and dose vancomycin started 01/10/20. O:JEAN MÁRQUEZ is a 74 year old F with Infected ANNABEL . Height: 5 feet, 6 inches Weight: 110 kg [place] Body Weight: 59.30 Adjusted Body Weight: 79.58 Dosing Weight: Actual Other Antibiotics: zosyn LABS: Last BUN: 11 Last Creatinine: 0.7 Creatinine Clearance: 64 mL/min Last WBC: 4 Last Procalcitonin: <0.1 Tmax (past 24 hours): 98 Microbiology: Pending I/O: 3340/650 Last dose given 01/10/20 at 1116 Vancomycin Dosing: Loading Dose: 2000 mg x1 Dosing Weight: Actual Target Trough: 15-20 A: Based on: weight and renal function P: 1. Begin Vancomycin 1500 mg IV q12h 2. Follow up Trough level on 01/11/20 at 2230 3. Pharmacy will continue to monitor, follow and adjust therapy as needed. Chelsey Han [facility], 01/10/20 0037
[2020-01-10 15:00] VITALS: BP 104/47
[2020-01-10] MEDS ORDERED: BISACODYL 10 MG SUPP.RECT. PR PRN (16:00)
--- NOTE | 2020-01-10 16:26 | NUR ---
Wound Care: Patient seen per wound care for wound vac assessment. Vac has good seal at 125mmHg continuous. Dressing is C/D/I. Will discuss with Dr. Shen regarding wound vac dressing changes. Patient educated regarding wound vac. Pt v/u. Family at bedside. Call light in reach. Will follow patient.
--- NOTE | 2020-01-10 17:10 | PDOC ---
PROGRESS NOTES Subjective Subjective Problems overnight:No hip pain, getting around well Objective Vital Signs Vital Signs Date Time Temp Pulse Resp B/P (MAP) Pulse Ox O2 Delivery O2 Flow Rate FiO2 01/10/20 15:00 97.5 65 18 104/47 (66) 97 Room Air 97.5 01/10/20 12:00 10.0 Physical Exam dressing intact, no drainage in wound vac, neuro intact, no redness or erythema Labs Laboratory Tests Test 01/09/20 17:01 01/09/20 17:04 01/09/20 19:07 01/10/20 06:17 Glucose (Fingerstick) 77 mg/dL (70-99) 96 mg/dL (70-99) White Blood Count 4.0 x10^3/uL (4.0-11.0) Red Blood Count 2.97 x10^6/uL (3.50-5.40) Hemoglobin 8.8 g/dL (12.0-15.5) Hematocrit 26.2 % (36.0-47.0) Mean Corpuscular Volume 88 fL (79-100) Mean Corpuscular Hemoglobin 30 pg (25-35) Mean Corpuscular Hemoglobin Concent 34 g/dL (31-37) Red Cell Distribution Width 14.0 % (11.5-14.5) Platelet Count 305 x10^3/uL (140-400) Neutrophils (%) (Auto) 56 % (31-73) Lymphocytes (%) (Auto) 30 % (24-48) Monocytes (%) (Auto) 10 % (0-9) Eosinophils (%) (Auto) 3 % (0-3) Basophils (%) (Auto) 1 % (0-3) Neutrophils # (Auto) 2.2 x10^3/uL (1.8-7.7) Lymphocytes # (Auto) 1.2 x10^3/uL (1.0-4.8) Monocytes # (Auto) 0.4 x10^3/uL (0.0-1.1) Eosinophils # (Auto) 0.1 x10^3/uL (0.0-0.7) Basophils # (Auto) 0.0 x10^3/uL (0.0-0.2) Prothrombin Time 22.9 SEC (11.7-14.0) 24.1 SEC (11.7-14.0) Prothromb Time International Ratio 2.1 (0.8-1.1) 2.2 (0.8-1.1) Sodium Level 144 mmol/L (136-145) 144 mmol/L (136-145) Potassium Level 3.4 mmol/L (3.5-5.1) 4.1 mmol/L (3.5-5.1) Chloride Level 105 mmol/L (98-107) 106 mmol/L (98-107) Carbon Dioxide Level 28 mmol/L (21-32) 30 mmol/L (21-32) Anion Gap 11 (6-14) 8 (6-14) Blood Urea Nitrogen 11 mg/dL (7-20) Creatinine 0.7 mg/dL (0.6-1.0) Estimated GFR (Cockcroft-Gault) 82.3 BUN/Creatinine Ratio 16 (6-20) Glucose Level 127 mg/dL (70-99) Calcium Level 8.4 mg/dL (8.5-10.1) Total Bilirubin 0.3 mg/dL (0.2-1.0) Aspartate Amino Transf (AST/SGOT) 18 U/L (15-37) Alanine Aminotransferase (ALT/SGPT) 19 U/L (14-59) Alkaline Phosphatase 66 U/L (46-116) C-Reactive Protein, Quantitative 18.3 mg/L (0-3.3) Total Protein 5.4 g/dL (6.4-8.2) Albumin 2.7 g/dL (3.4-5.0) Albumin/Globulin Ratio 1.0 (1.0-1.7) Procalcitonin < 0.10 ng/mL (0.00-0.10) Test 01/10/20 08:19 01/10/20 11:37 Glucose (Fingerstick) 111 mg/dL (70-99) Erythrocyte Sedimentation Rate 93 (0-25) Laboratory Tests Test 01/09/20 19:07 01/10/20 06:17 01/10/20 08:19 01/10/20 11:37 Glucose (Fingerstick) 96 mg/dL (70-99) 111 mg/dL (70-99) Prothrombin Time 24.1 SEC (11.7-14.0) Prothromb Time International Ratio 2.2 (0.8-1.1) Sodium Level 144 mmol/L (136-145) Potassium Level 4.1 mmol/L (3.5-5.1) Chloride Level 106 mmol/L (98-107) Carbon Dioxide Level 30 mmol/L (21-32) Anion Gap 8 (6-14) Blood Urea Nitrogen 11 mg/dL (7-20) Creatinine 0.7 mg/dL (0.6-1.0) Estimated GFR (Cockcroft-Gault) 82.3 BUN/Creatinine Ratio 16 (6-20) Glucose Level 127 mg/dL (70-99) Calcium Level 8.4 mg/dL (8.5-10.1) Total Bilirubin 0.3 mg/dL (0.2-1.0) Aspartate Amino Transf (AST/SGOT) 18 U/L (15-37) Alanine Aminotransferase (ALT/SGPT) 19 U/L (14-59) Alkaline Phosphatase 66 U/L (46-116) C-Reactive Protein, Quantitative 18.3 mg/L (0-3.3) Total Protein 5.4 g/dL (6.4-8.2) Albumin 2.7 g/dL (3.4-5.0) Albumin/Globulin Ratio 1.0 (1.0-1.7) Procalcitonin < 0.10 ng/mL (0.00-0.10) Erythrocyte Sedimentation Rate 93 (0-25) Assessment Assessment POD# 1 I/D left hip wound Plan Plan of Care Appreciate ID consult, ABx noted Cultures pending, discussed need for ongoing hospitalization pending culture results, she agrees LINDSEY KEYES MD Jan 10, 2020 17:10
[2020-01-10] MEDS: WARFARIN 5 MG TABLET. PO SCH (18:07)
[2020-01-10 19:15] VITALS: BP 103/49
[2020-01-10] MEDS: ATORVASTATIN CALCIUM 20 MG TABLET PO SCH (20:13)
--- NOTE | 2020-01-10 20:35 | NUR ---
The patient, JEAN MÁRQUEZ, 74 y/o, F admitted by LINDSEY KEYES MD, was given written information regarding hospital policies, unit procedures and contact persons. Valuables were checked and family present. Patient stabilized, given medication and resting in room.
[2020-01-10 23:30] VITALS: BP 100/41
[2020-01-11] MEDS: VANCOMYCIN 1.5 GM in IV NORMAL SALINE 500ML BAG 500 ML IV SCH ×2 (00:47→12:58)
[2020-01-11] MEDS: ACETAMINOPHEN 500 MG TABLET PO SCH ×4 (03:00→21:00)
[2020-01-11] MEDS: PIPERACILLIN/TAZOBACTAM 3.375 GM in IV NORMAL SALINE 50ML 50 ML IV SCH ×4 (03:05→18:03)
[2020-01-11 03:23] VITALS: BP 110/45
--- NOTE | 2020-01-11 04:05 | NUR ---
Informed [facility] for vanc and katarzyna
[2020-01-11 04:53] LABS: HEMATOCRIT 23.7 % (36.0-47.0)
[2020-01-11 04:59] LABS: PROTHROMBIN TIME PATIENT 24.6 SEC (11.7-14.0)
[2020-01-11 05:09] LABS: CREATININE 0.8 mg/dL (0.6-1.0); GFR 70.5
[2020-01-11] MEDS: traMADol 50 MG TABLET PO SCH ×4 (06:00→18:00)
[2020-01-11 07:15] VITALS: BP 117/58
--- NOTE | 2020-01-11 08:45 | PDOC ---
Infectious Disease Note Subjective Subjective pt is feeling good ROS ROS no n/v/d/sob/fever Vital Sign Vital Signs Vital Signs Date Time Temp Pulse Resp B/P (MAP) Pulse Ox O2 Delivery O2 Flow Rate FiO2 01/11/20 07:15 98.2 68 18 117/58 (77) 98 Room Air 98.2 01/11/20 03:23 2.0 Physical Exam PHYSICAL EXAM GENERAL: Alert and oriented female. Not in distress. VITAL SIGNS: Stable and afebrile. HEENT: NAD. NECK: Supple. No JVP. No lymphadenopathy. LUNGS: Clear. HEART: S1, S2 regular. ABDOMEN: Benign. EXTREMITIES: No edema or cyanosis. SKIN: Unremarkable. The patient does have a wound VAC on to the left hip. NEUROLOGIC: The patient is alert, awake, and appropriate. No focal neurologic deficit. Labs Lab Laboratory Tests Test 01/10/20 11:37 01/11/20 04:10 Erythrocyte Sedimentation Rate 93 (0-25) Hemoglobin 8.0 g/dL (12.0-15.5) Hematocrit 23.7 % (36.0-47.0) Mean Corpuscular Hemoglobin Concent 34 g/dL (31-37) Prothrombin Time 24.6 SEC (11.7-14.0) Prothromb Time International Ratio 2.2 (0.8-1.1) Creatinine 0.8 mg/dL (0.6-1.0) Estimated GFR (Cockcroft-Gault) 70.5 Objective Assessment IMPRESSION: 1. Total hip arthroplasty on 12/13/2019. Post total hip arthroplasty, continued serosanguineous drainage and hence incision and drainage done on 01/09/2020. 2. Prediabetic. 3. Hypertension. 4. Hypothyroidism. 5. Obstructive sleep apnea. 6. Rheumatoid arthritis. 7. Osteoarthritis. Plan Plan of Care cont antibiotics culture pending supportive care EVERETTE AYON MD Jan 11, 2020 08:45
[2020-01-11] MEDS: SENNOSIDES/DOCUSATE 8.6/50MG TABLET. PO SCH (08:58)
[2020-01-11] MEDS: CYANOCOBALAMIN (VITAMIN B-12) 1,000 MCG TABLET. PO SCH (08:59)
[2020-01-11] MEDS: FERROUS SULFATE 325 MG TABLET. PO SCH ×2 (08:59→18:02)
[2020-01-11] MEDS: cycloSPORINE 0.05% OPHTH DROPERETTE. OU SCH ×2 (08:59→21:36)
[2020-01-11] MEDS: MULTIVITAMIN with MINERAL TABLET. PO SCH (08:59)
[2020-01-11] MEDS: CELECOXIB 100 MG CAPSULE. PO SCH (09:00)
[2020-01-11] MEDS: CHOLECALCIFEROL (VITAMIN D3) 1,000 UNIT TABLET PO SCH (09:00)
[2020-01-11] MEDS: VENLAFAXINE 75 MG TABLET. PO SCH (09:00)
[2020-01-11] MEDS: hydroCHLOROthiazide 25 MG TABLET PO SCH (09:00)
[2020-01-11] MEDS: METOPROLOL TART IMMED RELEASE 25 MG TABLET. PO SCH ×2 (09:00→21:00)
[2020-01-11] MEDS: PANTOPRAZOLE 40 MG TABLET.DR. PO SCH (09:00)
[2020-01-11] MEDS: metFORMIN 500 MG TABLET PO SCH ×2 (09:00→18:02)
[2020-01-11] MEDS: ASPIRIN CHEWABLE 81 MG TABLET. PO SCH (09:00)
[2020-01-11] MEDS: LOSARTAN POTASSIUM 50 MG TABLET. PO SCH (09:01)
[2020-01-11 11:05] VITALS: BP 118/57
--- NOTE | 2020-01-11 12:33 | NUR ---
SW following. Discussed with RN. Pt from home. PT/OT recommending home. Currently on IV vanc/ zosyn. Cultures pending for further discharge planning. SW will continue to follow.
[2020-01-11] MEDS: VANCOMYCIN PER PHARMACY MC PRN (14:45)
[2020-01-11 15:15] VITALS: BP 100/44
--- NOTE | 2020-01-11 15:49 | PDOC ---
ORTHO PROGRESS NOTES Subjective Patient states she feels no pain. No difficulties getting up and about, not aware of any drainage left hip. Post-op Day: 2 Procedure LEFT hip I&D, Wound VAC Vitals Vital Signs Date Time Temp Pulse Resp B/P (MAP) Pulse Ox O2 Delivery O2 Flow Rate FiO2 01/11/20 11:05 98.4 64 18 118/57 (77) 98 Room Air 98.4 01/11/20 03:23 2.0 Labs Laboratory Tests Test 01/09/20 17:01 01/09/20 17:04 01/09/20 19:07 01/10/20 06:17 Glucose (Fingerstick) 77 mg/dL (70-99) 96 mg/dL (70-99) White Blood Count 4.0 x10^3/uL (4.0-11.0) Red Blood Count 2.97 x10^6/uL (3.50-5.40) Hemoglobin 8.8 g/dL (12.0-15.5) Hematocrit 26.2 % (36.0-47.0) Mean Corpuscular Volume 88 fL (79-100) Mean Corpuscular Hemoglobin 30 pg (25-35) Mean Corpuscular Hemoglobin Concent 34 g/dL (31-37) Red Cell Distribution Width 14.0 % (11.5-14.5) Platelet Count 305 x10^3/uL (140-400) Neutrophils (%) (Auto) 56 % (31-73) Lymphocytes (%) (Auto) 30 % (24-48) Monocytes (%) (Auto) 10 % (0-9) Eosinophils (%) (Auto) 3 % (0-3) Basophils (%) (Auto) 1 % (0-3) Neutrophils # (Auto) 2.2 x10^3/uL (1.8-7.7) Lymphocytes # (Auto) 1.2 x10^3/uL (1.0-4.8) Monocytes # (Auto) 0.4 x10^3/uL (0.0-1.1) Eosinophils # (Auto) 0.1 x10^3/uL (0.0-0.7) Basophils # (Auto) 0.0 x10^3/uL (0.0-0.2) Prothrombin Time 22.9 SEC (11.7-14.0) 24.1 SEC (11.7-14.0) Prothromb Time International Ratio 2.1 (0.8-1.1) 2.2 (0.8-1.1) Sodium Level 144 mmol/L (136-145) 144 mmol/L (136-145) Potassium Level 3.4 mmol/L (3.5-5.1) 4.1 mmol/L (3.5-5.1) Chloride Level 105 mmol/L (98-107) 106 mmol/L (98-107) Carbon Dioxide Level 28 mmol/L (21-32) 30 mmol/L (21-32) Anion Gap 11 (6-14) 8 (6-14) Blood Urea Nitrogen 11 mg/dL (7-20) Creatinine 0.7 mg/dL (0.6-1.0) Estimated GFR (Cockcroft-Gault) 82.3 BUN/Creatinine Ratio 16 (6-20) Glucose Level 127 mg/dL (70-99) Calcium Level 8.4 mg/dL (8.5-10.1) Total Bilirubin 0.3 mg/dL (0.2-1.0) Aspartate Amino Transf (AST/SGOT) 18 U/L (15-37) Alanine Aminotransferase (ALT/SGPT) 19 U/L (14-59) Alkaline Phosphatase 66 U/L (46-116) C-Reactive Protein, Quantitative 18.3 mg/L (0-3.3) Total Protein 5.4 g/dL (6.4-8.2) Albumin 2.7 g/dL (3.4-5.0) Albumin/Globulin Ratio 1.0 (1.0-1.7) Procalcitonin < 0.10 ng/mL (0.00-0.10) Test 01/10/20 08:19 01/10/20 11:37 01/11/20 04:10 Glucose (Fingerstick) 111 mg/dL (70-99) Erythrocyte Sedimentation Rate 93 (0-25) Hemoglobin 8.0 g/dL (12.0-15.5) Hematocrit 23.7 % (36.0-47.0) Mean Corpuscular Hemoglobin Concent 34 g/dL (31-37) Prothrombin Time 24.6 SEC (11.7-14.0) Prothromb Time International Ratio 2.2 (0.8-1.1) Creatinine 0.8 mg/dL (0.6-1.0) Estimated GFR (Cockcroft-Gault) 70.5 Laboratory Tests Test 01/11/20 04:10 Hemoglobin 8.0 g/dL (12.0-15.5) Hematocrit 23.7 % (36.0-47.0) Mean Corpuscular Hemoglobin Concent 34 g/dL (31-37) Prothrombin Time 24.6 SEC (11.7-14.0) Prothromb Time International Ratio 2.2 (0.8-1.1) Creatinine 0.8 mg/dL (0.6-1.0) Estimated GFR (Cockcroft-Gault) 70.5 Notes Patient alert and oriented 3, neurovascularly intact, left hip wound VAC in place sealed with any drainage contained. No induration, erythema, or signs of infection. Calf nontender bilaterally, negative Homans sign bilaterally Hgb 8.0/Hct 23+ low. Problems: (1) Unspecified open wound, left hip, sequela (2) Status post total hip replacement, left Assessment and Plan Continue wound vac. Monitor culture results Pt encouraged to pump ankles up and down, squeeze calf bilaterally and be mobile, not sedentary for DVT prophylaxis. Hgb/HCT low but not to level of need for transfusion. Monitor Surgeon advised of results. VICTOR MANUEL FRANZ Jr. PAC Jan 11, 2020 15:49
[2020-01-11] MEDS: WARFARIN 5 MG TABLET. PO SCH (18:02)
[2020-01-11] MEDS: IV NORMAL SALINE 1000ML BAG 1,000 ML IV SCH (18:03)
[2020-01-11 19:00] VITALS: BP 124/44
[2020-01-11] MEDS: ATORVASTATIN CALCIUM 20 MG TABLET PO SCH (21:35)
[2020-01-11 23:00] VITALS: BP 121/46
[2020-01-12] MEDS: PIPERACILLIN/TAZOBACTAM 3.375 GM in IV NORMAL SALINE 50ML 50 ML IV SCH ×4 (00:03→17:11)
[2020-01-12 01:05] LABS: CREATININE 0.7 mg/dL (0.6-1.0); GFR 82.3; VANC TR 14.1 mcg/mL (10.0-20.0)
[2020-01-12 01:12] LABS: PROTHROMBIN TIME PATIENT 23.3 SEC (11.7-14.0)
[2020-01-12] MEDS: VANCOMYCIN 1.5 GM in IV NORMAL SALINE 500ML BAG 500 ML IV SCH ×2 (01:52→13:18)
[2020-01-12] MEDS: VANCOMYCIN PER PHARMACY MC PRN ×2 (02:16→02:22)
--- NOTE | 2020-01-12 02:24 | NUR ---
Pharmacy Vancomycin Dosing Note S: Consulted to monitor and dose vancomycin started 01/10/20. O: JEAN MÁRQUEZ is a 74 year old F with , Infected ANNABEL . Other Antibiotics: zosyn LABS: Last BUN: 11 Last Creatinine: 0.7 Creatinine Clearance: 64 mL/min Last WBC: 4 Last Procalcitonin: <0.1 Tmax (past 24 hours): 98.4 Microbiology: Pending I/O: 755/1 3VOIDS Drug Levels: Last Trough level: 14.1 on 01/12/20 at 0040 Last dose given 01/11/20 at 1258 Vancomycin Dosing: Dosing Weight: Actual Target Trough: 15-20 A: Based on: Trough, Actual Wt and CrCl P: 1. 01/12/20 Continue Vancomycin 1500 mg IV q12h 2. Follow up Trough level on 01/14/20 at 1230 3. Pharmacy will continue to monitor, follow and adjust therapy as needed. CHRISTINE ENGLAND RPH, 01/12/20 0224 Signed: 01/12/20 at 0226 by CHRISTINE ENGLAND RPH PHA
[2020-01-12 03:00] VITALS: BP 119/49
[2020-01-12] MEDS: ACETAMINOPHEN 500 MG TABLET PO SCH ×4 (03:00→21:00)
[2020-01-12] MEDS: traMADol 50 MG TABLET PO SCH ×5 (05:15→22:05)
[2020-01-12] MEDS: PANTOPRAZOLE 40 MG TABLET.DR. PO SCH (06:40)
[2020-01-12 07:00] VITALS: BP 140/56
[2020-01-12] MEDS: metFORMIN 500 MG TABLET PO SCH ×2 (08:19→17:11)
[2020-01-12] MEDS: ASPIRIN CHEWABLE 81 MG TABLET. PO SCH (08:19)
[2020-01-12] MEDS: cycloSPORINE 0.05% OPHTH DROPERETTE. OU SCH ×3 (08:19→21:55)
[2020-01-12] MEDS: MULTIVITAMIN with MINERAL TABLET. PO SCH (08:19)
[2020-01-12] MEDS: VENLAFAXINE 75 MG TABLET. PO SCH (08:19)
[2020-01-12] MEDS: CHOLECALCIFEROL (VITAMIN D3) 1,000 UNIT TABLET PO SCH (08:19)
[2020-01-12] MEDS: FERROUS SULFATE 325 MG TABLET. PO SCH ×2 (08:19→17:11)
[2020-01-12] MEDS: hydroCHLOROthiazide 25 MG TABLET PO SCH (08:19)
[2020-01-12] MEDS: SENNOSIDES/DOCUSATE 8.6/50MG TABLET. PO SCH (08:19)
[2020-01-12] MEDS: METOPROLOL TART IMMED RELEASE 25 MG TABLET. PO SCH ×2 (08:20→21:58)
[2020-01-12] MEDS: LOSARTAN POTASSIUM 50 MG TABLET. PO SCH (08:20)
[2020-01-12] MEDS: CELECOXIB 100 MG CAPSULE. PO SCH (08:20)
[2020-01-12] MEDS: CYANOCOBALAMIN (VITAMIN B-12) 1,000 MCG TABLET. PO SCH (08:20)
--- NOTE | 2020-01-12 09:00 | PDOC ---
Infectious Disease Note Subjective Subjective pt is feeling good ROS ROS no n/v/d/pain/fever Vital Sign Vital Signs Vital Signs Date Time Temp Pulse Resp B/P (MAP) Pulse Ox O2 Delivery O2 Flow Rate FiO2 01/12/20 08:28 Room Air 01/12/20 08:20 63 140/56 01/12/20 07:00 98.3 18 99 3.0 98.3 Physical Exam PHYSICAL EXAM GENERAL: Alert and oriented female. Not in distress. VITAL SIGNS: Stable and afebrile. HEENT: NAD. NECK: Supple. No JVP. No lymphadenopathy. LUNGS: Clear. HEART: S1, S2 regular. ABDOMEN: Benign. EXTREMITIES: No edema or cyanosis. SKIN: Unremarkable. The patient does have a wound VAC on to the left hip. NEUROLOGIC: The patient is alert, awake, and appropriate. No focal neurologic deficit. Labs Lab Laboratory Tests Test 01/12/20 00:40 Prothrombin Time 23.3 SEC (11.7-14.0) Prothromb Time International Ratio 2.1 (0.8-1.1) Creatinine 0.7 mg/dL (0.6-1.0) Estimated GFR (Cockcroft-Gault) 82.3 Vancomycin Level Trough 14.1 mcg/mL (10.0-20.0) Vancomycin Last Dose Date Vancomycin Last Dose Time 1300 Micro culture still not available Objective Assessment IMPRESSION: 1. Total hip arthroplasty on 12/13/2019. Post total hip arthroplasty, continued serosanguineous drainage and hence incision and drainage done on 01/09/2020. 2. Prediabetic. 3. Hypertension. 4. Hypothyroidism. 5. Obstructive sleep apnea. 6. Rheumatoid arthritis. 7. Osteoarthritis. Plan Plan of Care cont antibiotics culture pending supportive care will d/w dr Shen , ? d/c EVERETTE AYON MD Jan 12, 2020 09:00
--- NOTE | 2020-01-12 10:28 | NUR ---
Pharmacy Warfarin Dosing Note S:Pharmacy consulted to assist with anticoagulation therapy started with target INR: 1.6 - 2.5 O:JEAN MÁRQUEZ is a 74 year old F with ANNABEL LABS: Last INR: 2.1 Last HGB: 8 Last HCT: 23.7 Last PLT: 305 Last dose of 5 mg given on 01/11/20 at 1802 Vitamin K given: N A:INR of 2.1 is within desired range. Target range for this patient is: 1.6 - 2.5 P: Warfarin dose: 5 mg Today at 1600 Bridge Therapy: None Next INR due 01/13/20. Pharmacy anticoagulation service will continue to follow. [facility], 01/12/20 4213
[2020-01-12 11:00] VITALS: BP 138/63
[2020-01-12 15:00] VITALS: BP 123/42
[2020-01-12] MEDS: IV NORMAL SALINE 1000ML BAG 1,000 ML IV SCH (17:10)
[2020-01-12] MEDS: WARFARIN 5 MG TABLET. PO SCH (17:11)
[2020-01-12 19:00] VITALS: BP 125/67
[2020-01-12] MEDS: ATORVASTATIN CALCIUM 20 MG TABLET PO SCH (21:54)
[2020-01-12] MEDS: LACTOBACILLUS RHAMNOSUS GG 1 CAPSULE. PO SCH (21:57)
[2020-01-12 23:37] VITALS: BP 145/62
[2020-01-13] MEDS: PIPERACILLIN/TAZOBACTAM 3.375 GM in IV NORMAL SALINE 50ML 50 ML IV SCH ×4 (00:54→18:20)
[2020-01-13] MEDS: VANCOMYCIN 1.5 GM in IV NORMAL SALINE 500ML BAG 500 ML IV SCH ×2 (00:56→13:18)
[2020-01-13] MEDS: ACETAMINOPHEN 500 MG TABLET PO SCH ×4 (03:00→22:37)
[2020-01-13 03:14] VITALS: BP 134/73
[2020-01-13] MEDS: PANTOPRAZOLE 40 MG TABLET.DR. PO SCH (05:40)
[2020-01-13] MEDS: traMADol 50 MG TABLET PO SCH ×3 (06:00→18:00)
[2020-01-13 07:00] VITALS: BP 153/54
[2020-01-13 08:21] LABS: PROTHROMBIN TIME PATIENT 22.5 SEC (11.7-14.0)
[2020-01-13 08:27] LABS: CREATININE 0.7 mg/dL (0.6-1.0); GFR 82.3
[2020-01-13] MEDS: ASPIRIN CHEWABLE 81 MG TABLET. PO SCH (08:49)
[2020-01-13] MEDS: VENLAFAXINE 75 MG TABLET. PO SCH (08:49)
[2020-01-13] MEDS: hydroCHLOROthiazide 25 MG TABLET PO SCH (08:49)
[2020-01-13] MEDS: CHOLECALCIFEROL (VITAMIN D3) 1,000 UNIT TABLET PO SCH (08:49)
[2020-01-13] MEDS: CELECOXIB 100 MG CAPSULE. PO SCH (08:49)
[2020-01-13] MEDS: MULTIVITAMIN with MINERAL TABLET. PO SCH (08:49)
[2020-01-13] MEDS: METOPROLOL TART IMMED RELEASE 25 MG TABLET. PO SCH ×2 (08:49→22:36)
[2020-01-13] MEDS: metFORMIN 500 MG TABLET PO SCH ×2 (08:50→17:58)
[2020-01-13] MEDS: LACTOBACILLUS RHAMNOSUS GG 1 CAPSULE. PO SCH ×2 (08:50→22:36)
[2020-01-13] MEDS: FERROUS SULFATE 325 MG TABLET. PO SCH ×2 (08:50→17:58)
[2020-01-13] MEDS: LOSARTAN POTASSIUM 50 MG TABLET. PO SCH (08:50)
[2020-01-13] MEDS: CYANOCOBALAMIN (VITAMIN B-12) 1,000 MCG TABLET. PO SCH (08:50)
[2020-01-13] MEDS: cycloSPORINE 0.05% OPHTH DROPERETTE. OU SCH ×2 (08:53→21:00)
[2020-01-13] MEDS: SENNOSIDES/DOCUSATE 8.6/50MG TABLET. PO SCH (08:54)
--- NOTE | 2020-01-13 09:14 | PDOC ---
Infectious Disease Note Subjective Subjective pt is feeling good ROS ROS no n/v/d/sob Vital Sign Vital Signs Vital Signs Date Time Temp Pulse Resp B/P (MAP) Pulse Ox O2 Delivery O2 Flow Rate FiO2 01/13/20 08:50 73 153/54 01/13/20 07:00 98.1 16 98 Room Air 98.1 01/13/20 03:14 2.0 Physical Exam PHYSICAL EXAM GENERAL: Alert and oriented female. Not in distress. VITAL SIGNS: Stable and afebrile. HEENT: NAD. NECK: Supple. No JVP. No lymphadenopathy. LUNGS: Clear. HEART: S1, S2 regular. ABDOMEN: Benign. EXTREMITIES: No edema or cyanosis. SKIN: Unremarkable. The patient does have a wound VAC on to the left hip. NEUROLOGIC: The patient is alert, awake, and appropriate. No focal neurologic deficit. Labs Lab Laboratory Tests Test 01/13/20 07:40 Prothrombin Time 22.5 SEC (11.7-14.0) Prothromb Time International Ratio 2.0 (0.8-1.1) Creatinine 0.7 mg/dL (0.6-1.0) Estimated GFR (Cockcroft-Gault) 82.3 Micro ANAEROBIC-AEROBIC CULTURE PENDING ANAEROBIC RES 1 PENDING AEROBIC CULT PENDING AEROBIC RES 1 PENDING GRAM STAIN Final Final report GRAM STAIN RES 1 Final Comment Rare white blood cells. GRAM STAIN RES 2 Final Comment Gram positive cocci in pairs and chains. Moderate seen Performed at: - [facility], [place], [place] [id number] Cert Occupational Therapy Asst: MADDY Boston MD, Phone: [phone] Objective Assessment IMPRESSION: 1. Total hip arthroplasty on 12/13/2019. Post total hip arthroplasty, continued serosanguineous drainage and hence incision and drainage done on 01/09/2020. 2. Prediabetic. 3. Hypertension. 4. Hypothyroidism. 5. Obstructive sleep apnea. 6. Rheumatoid arthritis. 7. Osteoarthritis. Plan Plan of Care cont antibiotics culture pending supportive care d/w Dr Shen, full coarse, 6 wks of iv picc once ID known, then scale down before d/c , hopefully tomorrow EVERETTE AYON MD Jan 13, 2020 09:14
--- NOTE | 2020-01-13 10:06 | NUR ---
Pharmacy Warfarin Dosing Note S:Pharmacy consulted to assist with anticoagulation therapy started with target INR: 1.6 - 2.5 O:JEAN MÁRQUEZ is a 74 year old F with ANNABEL LABS: Last INR: 2 Last HGB: 8 Last HCT: 23.7 Last PLT: 305 Last dose of 5 mg given on 01/12/20 at 1711 Vitamin K given: N A:INR of 2 is within desired range. Target range for this patient is: 1.6 - 2.5 P: Warfarin dose: 5 mg Today at 1600 Bridge Therapy: None Next INR due 01/14/20. Pharmacy anticoagulation service will continue to follow. ACOSTA LINK RPH, 01/13/20 [id number]
[2020-01-13] MEDS: VANCOMYCIN PER PHARMACY MC PRN (10:11)
[2020-01-13 11:00] VITALS: BP 131/58
[2020-01-13] MEDS ORDERED: LIDOCAINE WITH 8.4% SOD BICARB 3 ML DISP.SYRIN. ONE (14:43)
--- NOTE | 2020-01-13 14:43 | PDOC ---
PROGRESS NOTES Subjective Subjective Problems overnight: No hip pain, getting up and around very well with walker support Objective Vital Signs Vital Signs Date Time Temp Pulse Resp B/P (MAP) Pulse Ox O2 Delivery O2 Flow Rate FiO2 01/13/20 11:00 98.1 57 16 131/58 (82) 98 Room Air 98.1 01/13/20 03:14 2.0 Physical Exam No redness or erythema at the incision wound VAC is in place but has absolutely no drainage leg lengths are equal distal neurovascular status intact Labs Laboratory Tests Test 01/12/20 00:40 01/13/20 07:40 Prothrombin Time 23.3 SEC (11.7-14.0) 22.5 SEC (11.7-14.0) Prothromb Time International Ratio 2.1 (0.8-1.1) 2.0 (0.8-1.1) Creatinine 0.7 mg/dL (0.6-1.0) 0.7 mg/dL (0.6-1.0) Estimated GFR (Cockcroft-Gault) 82.3 82.3 Vancomycin Level Trough 14.1 mcg/mL (10.0-20.0) Vancomycin Last Dose Date [id number] Vancomycin Last Dose Time 1300 Laboratory Tests Test 01/13/20 07:40 Prothrombin Time 22.5 SEC (11.7-14.0) Prothromb Time International Ratio 2.0 (0.8-1.1) Creatinine 0.7 mg/dL (0.6-1.0) Estimated GFR (Cockcroft-Gault) 82.3 Assessment Assessment POD# 4 irrigation debridement of left hip Plan Plan of Care Cultures show some preliminary Gram-positive cocci in chains in clusters no ID or sensitivities at present I had a long discussion with the patient as well as consultation with Dr. Langford and explained that there was a concern for some growth of typical skin organisms in the intraoperative cultures and we should treat these aggressively with probably 6 weeks of IV antibiotics as I cannot be absolutely sure of no deep involvement despite the appearance of superficial involvement. She agrees with the treatment and as soon as cultures and sensitivities are available we can proceed with her outpatient treatment and plan follow-up with me about a week from Thursday. All her questions were answered at present LINDSEY KEYES MD Jan 13, 2020 14:42
--- NOTE | 2020-01-13 14:50 | SNU/HH DC ---
DISCHARGE WITH HOME HEALTH DISCHARGE INFORMATION: Condition on Discharge: Stable CODE STATUS: Code Status: Full HOME HEALTH: Face to Face: I certify this patient is under my care and that I, or a nurse practitioner or physician's assistant boys track coach working with me, had a face to face encounter that meets the physician face to face encounter requirements with this patient on [01/13/2020]. Medical Complications: S/P [employer] For: IV Infusion Therapy RN For Eval/Treatment: Yes Pt Meets Homebound Status: Limited distance walking POST DISCHARGE ORDERS: Activity Instructions for Disc: Walk in house, Other, see below (weightbearing as tolerated with standard total hip precautions on left) Weight Bearing Status after Di: No restrictions, Full weight bearing, As tolerated Bathing Instructions: Shower-keep dressing dry, No Tub Bath until see Wound/Incision Care: Ice to area for comfort, Keep wound/cast CDI, Keep wound elevated, Do not change dressing Other wound/incision instructi: keep dressing intact and call if saturated or problems with wound VAC CHECKS AFTER DISCHARGE: Comment: has pain meds at home not wanting additional FOLLOW-UP: Follow up with: Dr. Shen 10 days Warfarin Follow UP: continue warfarin dosing per [place] [facility] TREATMENT/EQUIPMENT ORDERS: Adaptive Equipment Issued: None, Walker CERTIFICATION STATEMENT: Certification Statement: Certification Statement: Based on the above finding, I certify that this patient is confined to the home and needs intermittent senior living care, physical therapy and/or speech therapy, or continues to need occupational therapy.~ This patient is under my care, and I have initiated the establishment of the plan of care.~ This patient will be followed by myself or a community physician who will periodically review the plan of care. Home Meds Active Scripts Oxycodone Hcl (OXYCODONE HCL) 5 Mg Capsule, 5 MG PO PRN Q4HRS PRN for PAIN, #60 TAB 0 Refills Prov:LINDSEY SHEN MD 12/16/19 Reported Medications Warfarin Sodium (WARFARIN SODIUM) 5 Mg Tablet, 5 MG PO DAILYWSUP for blood thinner, #45 TAB 0 Refills 12/16/19 Multivitamin (MULTIPLE VITAMINS) 1 Each Tablet, 1 EACH PO DAILY for SUPPLEMENT, TAB 12/07/19 Celecoxib (CELEBREX) 200 Mg Capsule, 200 MG PO DAILY for PAIN CONTTROL for 30 Days, #30 CAP 0 Refills 12/07/19 Venlafaxine Hcl (VENLAFAXINE HCL) 75 Mg Tablet, 75 MG PO DAILY for ANTIDEPRESSANT, TAB 12/07/19 Atorvastatin Calcium (ATORVASTATIN CALCIUM) 20 Mg Tablet, 20 MG PO HS for FOR CHOLESTEROL, #30 TAB 0 Refills 12/07/19 Albuterol Sulfate (VENTOLIN HFA INHALER) 18 Gm Hfa.aer.ad, 2 PUFF INH PRN QID PRN for SHORTNESS OF BREATH, INHALER 0 Refills 12/07/19 Cyanocobalamin (Vitamin B-12) (Vitamin B12) 2,500 Mcg Tab.chew, 1000 MCG PO DAILY for SUPPLEMENT, TAB.CHEW 12/07/19 Omeprazole (OMEPRAZOLE) 40 Mg Capsule.dr, 40 MG PO DAILY for TREAT REFLUX, CAP 12/07/19 Cholecalciferol (Vitamin D3) (VITAMIN D3) 2,000 Unit Tablet, 2000 UNIT PO DAILY for SUPPLEMENT, TAB 12/07/19 [place]-3/Dha/Epa/Fish Oil (Fish Oil EC 1,200 mg Softgel) 1 Each Capsule.dr, 600 MG PO BID for SUPPLEMENT, CAP 12/07/19 Ubidecarenone (COQ10) 50 Mg Tab.chew, 200 MG PO DAILY for SUPPLEMENT, TAB.CHEW 12/07/19 Aspirin (ASPIRIN) 81 Mg Tab.chew, 81 MG PO DAILY for BLOOD THINNER, TAB.CHEW 12/07/19 Cyclosporine (RESTASIS) 1 Each Droperette, 1 EACH EACHEYE DAILY for TREAT DRY EYES, DROP 12/07/19 Losartan Potassium (LOSARTAN POTASSIUM) 100 Mg Tablet, 100 MG PO DAILY for HYPERTENSION, TAB 12/07/19 Metoprolol Tartrate (METOPROLOL TARTRATE) 25 Mg Tablet, 25 MG PO BID for FOR HYPERTENSION, #60 TAB 0 Refills 12/07/19 Hydrochlorothiazide (HYDROCHLOROTHIAZIDE TABLET) 50 Mg Tablet, 25 MG PO DAILY for DIURETIC, TAB 0 Refills 12/07/19 Metformin Hcl (METFORMIN HCL) 500 Mg Tablet, 500 MG PO BIDWMEALS for ANTI- DIABETIC, TAB 0 Refills 10/19/18 LINDSEY SHEN MD Jan 13, 2020 14:49
[2020-01-13 15:00] VITALS: BP 129/52
[2020-01-13] MEDS ORDERED: LIDOCAINE WITH 8.4% SOD BICARB 3 ML DISP.SYRIN. INJ ONE (15:00)
--- NOTE | 2020-01-13 15:56 | NUR ---
Wound Care Wound care follow up for placement of Prevena vac prior to discharge. Old dressing removed, serjio intact and wound edges approximated. Cleaned with ChloraPrep and Prevena placed per Dr Shen orders. Pt tolerated procedure well. Pt will follow up with Dr Shen and home health.
[2020-01-13] MEDS: WARFARIN 5 MG TABLET. PO SCH (17:58)
[2020-01-13 19:10] VITALS: BP 122/48
[2020-01-13] MEDS: IV NORMAL SALINE 1000ML BAG 1,000 ML IV SCH (19:30)
[2020-01-13] MEDS: ATORVASTATIN CALCIUM 20 MG TABLET PO SCH (22:36)
[2020-01-13 23:00] VITALS: BP 126/62
[2020-01-14] MEDS: PIPERACILLIN/TAZOBACTAM 3.375 GM in IV NORMAL SALINE 50ML 50 ML IV SCH ×4 (00:22→17:05)
[2020-01-14] MEDS: VANCOMYCIN 1.5 GM in IV NORMAL SALINE 500ML BAG 500 ML IV SCH ×2 (01:12→14:19)
[2020-01-14 03:00] VITALS: BP 133/64
[2020-01-14] MEDS: ACETAMINOPHEN 500 MG TABLET PO SCH ×4 (03:00→21:54)
[2020-01-14] MEDS: traMADol 50 MG TABLET PO SCH ×4 (05:41→17:05)
[2020-01-14 05:48] LABS: PROTHROMBIN TIME PATIENT 21.3 SEC (11.7-14.0)
[2020-01-14] MEDS: PANTOPRAZOLE 40 MG TABLET.DR. PO SCH (06:40)
[2020-01-14 07:00] VITALS: BP 127/89
--- NOTE | 2020-01-14 08:28 | PDOC ---
ORTHO PROGRESS NOTES Subjective She tells me that she is feeling fine and is looking forward to going home today. No particular complaints or concerns Vitals Vital Signs Date Time Temp Pulse Resp B/P (MAP) Pulse Ox O2 Delivery O2 Flow Rate FiO2 01/14/20 03:00 97.7 63 18 133/64 (87) 95 Room Air 97.7 01/13/20 20:00 2.0 Labs Laboratory Tests Test 01/13/20 07:40 01/14/20 05:25 Prothrombin Time 22.5 SEC (11.7-14.0) 21.3 SEC (11.7-14.0) Prothromb Time International Ratio 2.0 (0.8-1.1) 1.9 (0.8-1.1) Creatinine 0.7 mg/dL (0.6-1.0) Estimated GFR (Cockcroft-Gault) 82.3 Laboratory Tests Test 01/14/20 05:25 Prothrombin Time 21.3 SEC (11.7-14.0) Prothromb Time International Ratio 1.9 (0.8-1.1) Notes She is awake and alert in bed, normal motor and sensation are present in bilateral lower extremities. Dressing is intact. Assessment and Plan She can be discharged home with home health care today, antibiotics per infectious disease. WERO LENZ II, MD Jan 14, 2020 08:28
[2020-01-14] MEDS: cycloSPORINE 0.05% OPHTH DROPERETTE. OU SCH ×2 (08:50→21:00)
[2020-01-14] MEDS: SENNOSIDES/DOCUSATE 8.6/50MG TABLET. PO SCH (08:50)
[2020-01-14] MEDS: hydroCHLOROthiazide 25 MG TABLET PO SCH (08:50)
[2020-01-14] MEDS: VENLAFAXINE 75 MG TABLET. PO SCH (08:51)
[2020-01-14] MEDS: CHOLECALCIFEROL (VITAMIN D3) 1,000 UNIT TABLET PO SCH (08:51)
[2020-01-14] MEDS: CYANOCOBALAMIN (VITAMIN B-12) 1,000 MCG TABLET. PO SCH (08:51)
[2020-01-14] MEDS: CELECOXIB 100 MG CAPSULE. PO SCH (08:51)
[2020-01-14] MEDS: METOPROLOL TART IMMED RELEASE 25 MG TABLET. PO SCH ×2 (08:51→21:54)
[2020-01-14] MEDS: LOSARTAN POTASSIUM 50 MG TABLET. PO SCH (08:51)
[2020-01-14] MEDS: LACTOBACILLUS RHAMNOSUS GG 1 CAPSULE. PO SCH ×2 (08:51→21:54)
[2020-01-14] MEDS: metFORMIN 500 MG TABLET PO SCH ×2 (08:51→16:07)
[2020-01-14] MEDS: ASPIRIN CHEWABLE 81 MG TABLET. PO SCH (08:51)
[2020-01-14] MEDS: FERROUS SULFATE 325 MG TABLET. PO SCH ×2 (08:51→16:08)
[2020-01-14] MEDS: MULTIVITAMIN with MINERAL TABLET. PO SCH (08:52)
--- NOTE | 2020-01-14 09:29 | PDOC ---
Infectious Disease Note Subjective Subjective pt is feeling good o F/C/s/N/v/D/SOA/rash ROS ROS o/w neg Vital Sign Vital Signs Vital Signs Date Time Temp Pulse Resp B/P (MAP) Pulse Ox O2 Delivery O2 Flow Rate FiO2 01/14/20 08:51 65 127/89 01/14/20 07:00 97.7 18 100 Room Air 97.7 01/13/20 20:00 2.0 Physical Exam PHYSICAL EXAM GENERAL: Alert and oriented female. Not in distress. In a chair HEENT: nml conj. OC/op - clear. NECK: Supple. No JVP. No lymphadenopathy. LUNGS: Clear. HEART: S1, S2 regular. ABDOMEN: Benign. EXTREMITIES: No edema or cyanosis. SKIN: Unremarkable. The patient does have a wound VAC on to the left hip. NEUROLOGIC: The patient is alert, awake, and appropriate. No focal neurologic deficit. PICC RUE - clean Labs Lab Laboratory Tests Test 01/14/20 05:25 Prothrombin Time 21.3 SEC (11.7-14.0) Prothromb Time International Ratio 1.9 (0.8-1.1) Micro Microbiology 01/09/20 Anaerobic/Aerobic Culture, Resulted Pending 01/09/20 Anaerobic Culture Result 1 (CALVIN), Resulted Pending 01/09/20 Aerobic Culture - Preliminary, Resulted 01/09/20 Aerobic Culture Result 1 (CALVIN) - Preliminary, Resulted 01/09/20 Gram Stain - Final, Resulted 01/09/20 Gram Stain Result 1 (CALVIN) - Final, Resulted 01/09/20 Gram Stain Result 2 (CALVIN) - Final, Resulted Objective Assessment 1. Total hip arthroplasty on 12/13/2019. Post total hip arthroplasty, continued serosanguineous drainage and hence incision and drainage done on 01/09/2020. Strep species 2. Prediabetic. 3. Hypertension. 4. Hypothyroidism. 5. Obstructive sleep apnea. 6. Rheumatoid arthritis. 7. Osteoarthritis. Plan Plan of Care cont Vanc and zosyn culture pending d/w labcorb this am and no further information except strep which could also mean Enterococcus supportive care Dr Langford d/w Dr Shen, full coarse, 6 wks of iv once ID known, then scale down before d/c , hopefully tomorrow d/w nursing INO COSTA MD Jan 14, 2020 09:28
[2020-01-14 11:00] VITALS: BP_SYST 114; BP_SYST 14; BP_DIAS 54
[2020-01-14 13:34] LABS: VANC TR 15.8 mcg/mL (10.0-20.0)
[2020-01-14] MEDS: VANCOMYCIN PER PHARMACY MC PRN (14:07)
[2020-01-14 15:00] VITALS: BP 113/44
[2020-01-14] MEDS: WARFARIN 5 MG TABLET. PO SCH (16:08)
[2020-01-14 19:00] VITALS: BP 123/60
[2020-01-14] MEDS: IV NORMAL SALINE 1000ML BAG 1,000 ML IV SCH (19:30)
[2020-01-14] MEDS: ATORVASTATIN CALCIUM 20 MG TABLET PO SCH (21:54)
[2020-01-14 23:00] VITALS: BP 122/61
[2020-01-15] MEDS: PIPERACILLIN/TAZOBACTAM 3.375 GM in IV NORMAL SALINE 50ML 50 ML IV SCH ×2 (00:15→06:20)
[2020-01-15] MEDS: traMADol 50 MG TABLET PO SCH ×4 (00:16→16:29)
[2020-01-15] MEDS: VANCOMYCIN 1.5 GM in IV NORMAL SALINE 500ML BAG 500 ML IV SCH (01:00)
[2020-01-15] MEDS: ACETAMINOPHEN 500 MG TABLET PO SCH ×4 (02:42→21:24)
[2020-01-15 07:00] VITALS: BP 129/55
[2020-01-15] MEDS: VENLAFAXINE 75 MG TABLET. PO SCH (08:18)
[2020-01-15] MEDS: CYANOCOBALAMIN (VITAMIN B-12) 1,000 MCG TABLET. PO SCH (08:18)
[2020-01-15] MEDS: METOPROLOL TART IMMED RELEASE 25 MG TABLET. PO SCH ×2 (08:19→21:24)
[2020-01-15] MEDS: metFORMIN 500 MG TABLET PO SCH ×2 (08:19→16:28)
[2020-01-15] MEDS: CHOLECALCIFEROL (VITAMIN D3) 1,000 UNIT TABLET PO SCH (08:19)
[2020-01-15] MEDS: cycloSPORINE 0.05% OPHTH DROPERETTE. OU SCH ×2 (08:19→21:00)
[2020-01-15] MEDS: CELECOXIB 100 MG CAPSULE. PO SCH (08:20)
[2020-01-15] MEDS: LACTOBACILLUS RHAMNOSUS GG 1 CAPSULE. PO SCH ×2 (08:20→21:24)
[2020-01-15] MEDS: ASPIRIN CHEWABLE 81 MG TABLET. PO SCH (08:20)
[2020-01-15] MEDS: SENNOSIDES/DOCUSATE 8.6/50MG TABLET. PO SCH (08:20)
[2020-01-15] MEDS: LOSARTAN POTASSIUM 50 MG TABLET. PO SCH (08:20)
[2020-01-15] MEDS: MULTIVITAMIN with MINERAL TABLET. PO SCH (08:21)
[2020-01-15] MEDS: PANTOPRAZOLE 40 MG TABLET.DR. PO SCH (08:21)
[2020-01-15] MEDS: hydroCHLOROthiazide 25 MG TABLET PO SCH (08:21)
[2020-01-15] MEDS: FERROUS SULFATE 325 MG TABLET. PO SCH ×2 (08:21→16:28)
--- NOTE | 2020-01-15 08:54 | PDOC ---
Infectious Disease Note Subjective Subjective pt is feeling good o F/C/s/N/v/D/SOA/rash ROS ROS o/w neg Vital Sign Vital Signs Vital Signs Date Time Temp Pulse Resp B/P (MAP) Pulse Ox O2 Delivery O2 Flow Rate FiO2 01/15/20 08:21 Room Air 01/15/20 08:20 70 122/61 01/15/20 07:00 97.7 18 98 97.7 01/15/20 06:21 2.0 Physical Exam PHYSICAL EXAM GENERAL: Alert and oriented female. Not in distress. In a chair HEENT: nml conj. OC/op - clear. NECK: Supple. No JVP. No lymphadenopathy. LUNGS: Clear. HEART: S1, S2 regular. ABDOMEN: Benign. EXTREMITIES: No edema or cyanosis. SKIN: Unremarkable. The patient does have a wound VAC on to the left hip. NEUROLOGIC: The patient is alert, awake, and appropriate. No focal neurologic deficit. PICC RUE - clean Labs Lab Laboratory Tests Test 01/14/20 12:50 Vancomycin Level Trough 15.8 mcg/mL (10.0-20.0) Vancomycin Last Dose Date 01/13/20 Vancomycin Last Dose Time 0100 Micro AEROBIC RES 1 Final Streptococcus species Enterococcus faecalis 4+ ANTIMICROBIAL SUSCEPTIBILITY Final Comment S = Susceptible; I = Intermediate; R = Resistant P = Positive; N = Negative MICS are expressed in micrograms per mL Antibiotic RSLT#1 RSLT#2 RSLT#3 RSLT#4 Penicillin S =1 Vancomycin S =1 Microbiology 01/09/20 Anaerobic/Aerobic Culture, Resulted Pending 01/09/20 Anaerobic Culture Result 1 (CALVIN), Resulted Pending 01/09/20 Aerobic Culture - Preliminary, Resulted 01/09/20 Aerobic Culture Result 1 (CALVIN) - Preliminary, Resulted 01/09/20 Gram Stain - Final, Resulted 01/09/20 Gram Stain Result 1 (CALVIN) - Final, Resulted 01/09/20 Gram Stain Result 2 (CALVIN) - Final, Resulted Objective Assessment 1. Total hip arthroplasty on 12/13/2019. Post total hip arthroplasty, continued serosanguineous drainage and hence incision and drainage done on 01/09/2020. Enterooccus species 2. Prediabetic. 3. Hypertension. 4. Hypothyroidism. 5. Obstructive sleep apnea. 6. Rheumatoid arthritis. 7. Osteoarthritis. Plan Plan of Care Juancont Judyn Begin amp/Rocephin Labs in am supportive care Dr Langford d/w Dr Shen, full coarse, 6 wks of iv once ID known, then scale down before d/c , hopefully tomorrow d/w nursing INO COSTA MD Jan 15, 2020 08:54
[2020-01-15] MEDS: cefTRIAXone IV Push 2 GM VIAL. IVP SCH ×2 (10:40→21:26)
[2020-01-15 11:00] VITALS: BP 124/60
[2020-01-15] MEDS: AMPICILLIN SODIUM 2 GM in IV NORMAL SALINE 100ML 100 ML IV SCH ×3 (12:06→20:00)
[2020-01-15 15:00] VITALS: BP 133/49
--- NOTE | 2020-01-15 15:42 | PDOC ---
ORTHO PROGRESS NOTES Subjective No complaints, feeling well, eager to go home Vitals Vital Signs Date Time Temp Pulse Resp B/P (MAP) Pulse Ox O2 Delivery O2 Flow Rate FiO2 01/15/20 15:00 98.0 73 18 133/49 (77) 97 Room Air 98.0 01/15/20 06:21 2.0 Labs Laboratory Tests Test 01/14/20 05:25 01/14/20 12:50 Prothrombin Time 21.3 SEC (11.7-14.0) Prothromb Time International Ratio 1.9 (0.8-1.1) Vancomycin Level Trough 15.8 mcg/mL (10.0-20.0) Vancomycin Last Dose Date 01/13/20 Vancomycin Last Dose Time 0100 Notes A and A in bed remains NVI LLE prevena in place, surrounding sot tissues look healthy Assessment and Plan awaiting abx selection likely home tomorrow WERO LENZ II, MD Jan 15, 2020 15:42
[2020-01-15] MEDS: WARFARIN 5 MG TABLET. PO SCH (16:28)
[2020-01-15] MEDS: IV NORMAL SALINE 1000ML BAG 1,000 ML IV SCH (19:30)
[2020-01-15 19:57] VITALS: BP 148/52
[2020-01-15] MEDS: ATORVASTATIN CALCIUM 20 MG TABLET PO SCH (21:24)
[2020-01-15 23:00] VITALS: BP 135/47
[2020-01-16] MEDS: ACETAMINOPHEN 500 MG TABLET PO SCH ×3 (02:53→16:34)
[2020-01-16 03:19] VITALS: BP 147/71
[2020-01-16] MEDS: AMPICILLIN SODIUM 2 GM in IV NORMAL SALINE 100ML 100 ML IV SCH ×6 (04:59→16:35)
[2020-01-16] MEDS: traMADol 50 MG TABLET PO SCH ×4 (05:52→18:00)
[2020-01-16 06:33] LABS: PROTHROMBIN TIME PATIENT 24.6 SEC (11.7-14.0)
[2020-01-16 06:36] LABS: CALCIUM 8.4 mg/dL (8.5-10.1); CREATININE 0.6 mg/dL (0.6-1.0); GFR 98.3; POTASSIUM 3.4 mmol/L (3.5-5.1)
[2020-01-16 07:00] VITALS: BP 138/64
[2020-01-16 07:27] LABS: BASO % 0 % (0-3); EOS # 0.1 x10^3/uL (0.0-0.7); EOS % 3 % (0-3); HEMATOCRIT 23.8 % (36.0-47.0); HEMOGLOBIN 8.1 g/dL (12.0-15.5); LYMPH # 0.7 x10^3/uL (1.0-4.8); LYMPH % 19 % (24-48); MEAN CORPUSCULAR HEMOGLOBIN 30 pg (25-35); MEAN CORPUSCULAR HGB CONC 34 g/dL (31-37); MEAN CORPUSCULAR VOLUME 88 fL (79-100); MONO # 0.3 x10^3/uL (0.0-1.1); MONO % 8 % (0-9); NEUT # 2.6 x10^3/uL (1.8-7.7); NEUT % 69 % (31-73); PLATELET COUNT 214 x10^3/uL (140-400); RED BLOOD COUNT 2.69 x10^6/uL (3.50-5.40); RED CELL DISTRIBUTION WIDTH 14.5 % (11.5-14.5); WHITE BLOOD COUNT 3.7 x10^3/uL (4.0-11.0)
[2020-01-16] MEDS: CELECOXIB 100 MG CAPSULE. PO SCH (08:02)
[2020-01-16] MEDS: PANTOPRAZOLE 40 MG TABLET.DR. PO SCH (08:02)
[2020-01-16] MEDS: ASPIRIN CHEWABLE 81 MG TABLET. PO SCH (08:03)
[2020-01-16] MEDS: MULTIVITAMIN with MINERAL TABLET. PO SCH (08:03)
[2020-01-16] MEDS: FERROUS SULFATE 325 MG TABLET. PO SCH ×2 (08:03→16:35)
[2020-01-16] MEDS: metFORMIN 500 MG TABLET PO SCH ×2 (08:03→16:42)
[2020-01-16] MEDS: LACTOBACILLUS RHAMNOSUS GG 1 CAPSULE. PO SCH (08:04)
[2020-01-16] MEDS: CYANOCOBALAMIN (VITAMIN B-12) 1,000 MCG TABLET. PO SCH (08:04)
[2020-01-16] MEDS: LOSARTAN POTASSIUM 50 MG TABLET. PO SCH (08:04)
[2020-01-16] MEDS: CHOLECALCIFEROL (VITAMIN D3) 1,000 UNIT TABLET PO SCH (08:05)
[2020-01-16] MEDS: METOPROLOL TART IMMED RELEASE 25 MG TABLET. PO SCH (08:05)
[2020-01-16] MEDS: hydroCHLOROthiazide 25 MG TABLET PO SCH (08:05)
[2020-01-16] MEDS: VENLAFAXINE 75 MG TABLET. PO SCH (08:05)
[2020-01-16] MEDS: SENNOSIDES/DOCUSATE 8.6/50MG TABLET. PO SCH (08:14)
[2020-01-16] MEDS: cycloSPORINE 0.05% OPHTH DROPERETTE. OU SCH (08:14)
--- NOTE | 2020-01-16 10:01 | RAD ---
Procedure: Upper extremity PICC line placement Clinical Indication: Adult female requiring long-term venous access Sedation: Local anesthesia only was provided Antibiotics: None Fluoro Time: 0.9 minutes, images: 1 Contrast: None Sterility: All elements of maximal sterile barrier technique including the use of a cap, mask, sterile gown, sterile gloves, large sterile sheet, appropriate hand hygiene, and 2% chlorhexidine for cutaneous antisepsis (or acceptable alternative antiseptic per current guidelines) were followed for this procedure. Consent: The procedure was explained in its entirety to the patient or the patients designated inbound sales representative by a member of the treatment team, including a discussion of the risks, benefits and commonly accepted alternatives to the procedure, as well as the expected consequences of no therapy whatsoever. Discussion of the risks included, but was not limited to, those that are most frequent and those that are rare but possibly severe or life-threatening, as well as the possibility of unforeseen complications. Technique and Findings: Following informed consent, the patient was prepped and draped in the usual sterile fashion. Ultrasound interrogation of the the right arm revealed patency and compressibility of the right basilic vein. A hard copy ultrasound image was recorded. 1% Lidocaine was used to achieve local anesthesia and a 21-gauge micropuncture needle was used to gain access to the targeted vein. The needle was exchanged over wire for a 5 [place]ian peel-away sheath which was used to deploy a PICC line under fluoroscopic guidance such that the distal tip resided at the cavoatrial junction. The catheter flushed and aspirated with ease and was sutured to the skin. Complications: No immediate Impression: 1. Ultrasound guided PICC line placement as described.
--- NOTE | 2020-01-16 10:07 | NUR ---
Pharmacy Warfarin Dosing Note S:Pharmacy consulted to assist with anticoagulation therapy started with target INR: 1.6 - 2.5 O:JEAN MÁRQUEZ is a 74 year old F with ANNABEL LABS: Last INR: 2.2 Last HGB: 8.1 Last HCT: 23.8 Last PLT: 214 Last dose of 5 mg given on 01/14/20 at 1608 Previous Regimen: Vitamin K given: N Drug Interaction Changes: Ongoing Drug Interactions: A:INR of 2.2 is within desired range. Target range for this patient is: 1.6 - 2.5 P: Warfarin dose: 5 mg Today at 1600. Bridge Therapy: None Next INR due 01/18/2020. Pharmacy anticoagulation service will continue to follow. Theo Schneider [facility], 01/16/20 1007
--- NOTE | 2020-01-16 10:23 | PDOC ---
Infectious Disease Note Subjective: Subjective pt is feeling good denies F/C/s/N/v/D/SOA/rash eager for dc home today able to walk without a walker Vital Signs: Vital Signs Vital Signs Date Time Temp Pulse Resp B/P (MAP) Pulse Ox O2 Delivery O2 Flow Rate FiO2 01/16/20 08:05 Room Air 01/16/20 08:05 84 111/73 01/16/20 07:00 98.2 18 96 98.2 01/16/20 03:19 2.0 Physical Exam: PHYSICAL EXAM GENERAL: Alert and oriented female. Not in distress. HEENT: nml conj. OC/op - clear. NECK: Supple. No JVP. No lymphadenopathy. LUNGS: Clear. HEART: S1, S2 regular. ABDOMEN: soft bs+ nontender, nondistended EXTREMITIES: No edema or cyanosis. MSK The patient does have a wound VAC on to the left hip.mild edema, no surrou nding redness BKA incisions well healed bilaterally SKIN: no gen rash NEUROLOGIC: The patient is alert, awake, and appropriate. No focal neurologic deficit. PICC RUE - clean Medications: Inpatient Meds: Current Medications Medications (Trade) Dose Ordered Sig/Kvng Start Time Stop Time Status Last Admin Dose Admin Acetaminophen (Tylenol) 1,000 mg Q6H 01/10/20 09:00 01/16/20 08:03 1,000 MG Albuterol Sulfate (Ventolin Neb Soln) 2.5 mg PRN Q6HRS PRN 01/09/20 19:15 01/10/20 19:35 2.5 MG Ampicillin Sodium 2 gm/Sodium Chloride 100 ml @ 200 mls/hr Q4HRS 01/15/20 12:00 01/16/20 08:06 200 MLS/HR Aspirin (Children'S Aspirin) 81 mg DAILY 01/10/20 09:00 01/16/20 08:03 81 MG Atorvastatin Calcium (Lipitor) 20 mg HS 01/09/20 21:00 01/15/20 21:24 20 MG Bisacodyl (Dulcolax Supp) 10 mg 1X PRN PRN 01/10/20 16:00 01/11/20 15:59 DC Calcium Carbonate/ Glycine (Tums) 500 mg PRN QID PRN 01/09/20 19:00 Cefazolin Sodium (Ancef) 1 gm STK-MED ONCE 01/09/20 17:43 01/09/20 17:43 DC Cefazolin Sodium/ Dextrose 50 ml @ 100 mls/hr Q6H 01/10/20 00:00 01/10/20 10:51 DC 01/10/20 06:00 100 MLS/HR Ceftriaxone Sodium (Rocephin) 2 gm Q12H 01/15/20 10:00 01/15/20 21:26 2 GM Celecoxib (CeleBREX) 200 mg DAILY 01/10/20 09:00 01/16/20 08:02 200 MG Cyanocobalamin (Vitamin B-12) 1,000 mcg DAILY 01/10/20 09:00 01/16/20 08:04 1,000 MCG Cyclosporine (Restasis) 1 drop BID 01/10/20 00:30 01/15/20 08:19 1 DROP Dexamethasone Sodium Phosphate (Decadron) 4 mg STK-MED ONCE 01/09/20 17:43 01/09/20 17:43 DC Dextrose (Dextrose 50%-Water Syringe) 12.5 gm PRN Q15MIN PRN 01/09/20 19:00 Diphenhydramine HCl (Benadryl) 25 mg PRN Q6HRS PRN 01/09/20 19:00 Fentanyl Citrate (Fentanyl 2ml Vial) 25 mcg PRN Q1HR PRN 01/09/20 19:00 Ferrous Sulfate (Feosol) 325 mg BIDWMEALS 01/10/20 08:00 01/16/20 08:03 325 MG Glycopyrrolate (Robinul) 1 mg STK-MED ONCE 01/09/20 18:43 01/09/20 18:43 DC Hydrochlorothiazide (Hydrodiuril) 25 mg DAILY 01/10/20 09:00 01/16/20 08:05 25 MG Hydromorphone HCl (Dilaudid) 0.5 mg PRN Q10MIN PRN 01/09/20 15:45 01/10/20 15:44 DC Lactobacillus Rhamnosus (Culturelle) 1 cap BID 01/12/20 21:00 01/16/20 08:04 1 CAP Lidocaine HCl (Buffered Lidocaine 1%) 3 ml 1X ONCE 01/13/20 15:00 01/13/20 15:01 DC 01/13/20 15:54 3 ML Lidocaine HCl (Lidocaine Pf 2% Vial) 5 ml STK-MED ONCE 01/09/20 17:43 01/09/20 17:43 DC Lidocaine HCl (Xylocaine-Mpf 1% 2ml Vial) 2 ml PRN 1X PRN 01/09/20 15:45 01/10/20 15:44 DC Losartan Potassium (Cozaar) 100 mg DAILY 01/10/20 09:00 01/16/20 08:04 100 MG Magnesium Hydroxide (Milk Of Magnesia) 2,400 mg 1X PRN PRN 01/10/20 06:00 01/11/20 06:00 DC Metformin HCl (Glucophage) 500 mg BIDWMEALS 01/10/20 08:00 01/16/20 08:03 500 MG Metoprolol Tartrate (Lopressor) 25 mg BID 01/09/20 21:00 01/16/20 08:05 25 MG Morphine Sulfate (Morphine Sulfate) 2 mg PRN Q1HR PRN 01/09/20 19:00 Multivitamins (Thera M Plus) 1 tab DAILY 01/10/20 09:00 01/16/20 08:03 1 TAB Neostigmine Sontag (Neostigmine Methylsulfate) 5 mg STK-MED ONCE 01/09/20 18:42 01/09/20 18:43 DC Non-Formulary Medication (Multivitamin (Multiple Vitamins)) 1 each DAILY 01/10/20 09:00 UNV Ondansetron HCl (Zofran Odt) 4 mg PRN Q6HRS PRN 01/10/20 12:00 Ondansetron HCl (Zofran) 4 mg PRN Q6HRS PRN 01/10/20 12:00 Oxycodone HCl (Roxicodone) 5 mg PRN Q4HRS PRN 01/09/20 19:00 Pantoprazole Sodium (Protonix) 40 mg DAILYAC 01/10/20 07:30 01/16/20 08:02 40 MG Phenylephrine HCl (PHENYLEPHRINE in 0.9% NACL PF) 1 mg STK-MED ONCE 01/09/20 17:37 01/09/20 17:37 DC Piperacillin Sod/ Tazobactam Sod 3.375 gm/Sodium Chloride 50 ml @ 100 mls/hr Q6HRS 01/10/20 12:00 01/15/20 09:05 DC 01/15/20 06:20 100 MLS/HR Prochlorperazine Edisylate (Compazine) 5 mg PACU PRN PRN 01/09/20 15:45 01/10/20 15:44 DC Prochlorperazine Maleate (Compazine) 10 mg PRN Q4HRS PRN 01/09/20 19:00 Propofol 20 ml @ As Directed STK-MED ONCE 01/09/20 17:43 01/09/20 17:43 DC Ringer's Solution 1,000 ml @ 30 mls/hr Q24H 01/09/20 15:32 01/10/20 03:31 DC 01/09/20 16:51 30 MLS/HR Rocuronium Sontag (Zemuron) 50 mg STK-MED ONCE 01/09/20 17:22 01/09/20 17:23 DC Senna/Docusate Sodium (Senna Plus) 1 tab DAILY 01/10/20 09:00 01/15/20 08:20 1 TAB Sevoflurane (Ultane) 60 ml STK-MED ONCE 01/09/20 19:00 01/09/20 19:00 DC Sodium Chloride (Normal Saline Flush) 10 ml QSHIFT PRN 01/09/20 19:00 Tramadol HCl (Ultram) 50 mg Q6H 01/10/20 06:00 01/15/20 06:21 50 MG Vancomycin HCl (Vanco Per Pharmacy) 1 each PRN DAILY PRN 01/10/20 11:00 01/15/20 09:05 DC 01/14/20 14:07 1 EACH Vancomycin HCl (Vancomycin Trough Level) 1 each 1X ONCE 01/14/20 12:30 01/14/20 12:31 DC Vancomycin HCl 1.5 gm/Sodium Chloride 500 ml @ 250 mls/hr Q12H 01/10/20 23:00 01/15/20 09:05 DC 01/15/20 01:00 250 MLS/HR Vancomycin HCl 2 gm/Sodium Chloride 500 ml @ 250 mls/hr 1X ONCE 01/10/20 11:00 01/10/20 12:59 DC 01/10/20 11:16 250 MLS/HR Venlafaxine HCl (Effexor) 75 mg DAILY 01/10/20 09:00 01/16/20 08:05 75 MG Vitamin D (Vitamin D3) 2,000 unit DAILY 01/10/20 09:00 01/16/20 08:05 2,000 UNIT Warfarin Sodium (Coumadin Per Pharmacy) 1 each PRN DAILY PRN 01/09/20 19:00 01/16/20 10:05 1 EACH Warfarin Sodium (Coumadin) 5 mg DAILYWSUP 01/09/20 21:00 01/15/20 16:28 5 MG Zolpidem Tartrate (Ambien) 5 mg PRN QHS PRN 01/09/20 19:00 01/10/20 00:17 5 MG Labs: Lab Laboratory Tests Test 01/16/20 06:15 White Blood Count 3.7 x10^3/uL (4.0-11.0) Red Blood Count 2.69 x10^6/uL (3.50-5.40) Hemoglobin 8.1 g/dL (12.0-15.5) Hematocrit 23.8 % (36.0-47.0) Mean Corpuscular Volume 88 fL (79-100) Mean Corpuscular Hemoglobin 30 pg (25-35) Mean Corpuscular Hemoglobin Concent 34 g/dL (31-37) Red Cell Distribution Width 14.5 % (11.5-14.5) Platelet Count 214 x10^3/uL (140-400) Neutrophils (%) (Auto) 69 % (31-73) Lymphocytes (%) (Auto) 19 % (24-48) Monocytes (%) (Auto) 8 % (0-9) Eosinophils (%) (Auto) 3 % (0-3) Basophils (%) (Auto) 0 % (0-3) Neutrophils # (Auto) 2.6 x10^3/uL (1.8-7.7) Lymphocytes # (Auto) 0.7 x10^3/uL (1.0-4.8) Monocytes # (Auto) 0.3 x10^3/uL (0.0-1.1) Eosinophils # (Auto) 0.1 x10^3/uL (0.0-0.7) Basophils # (Auto) 0.0 x10^3/uL (0.0-0.2) Erythrocyte Sedimentation Rate 70 (0-25) Prothrombin Time 24.6 SEC (11.7-14.0) Prothromb Time International Ratio 2.2 (0.8-1.1) Sodium Level 144 mmol/L (136-145) Potassium Level 3.4 mmol/L (3.5-5.1) Chloride Level 109 mmol/L (98-107) Carbon Dioxide Level 31 mmol/L (21-32) Anion Gap 4 (6-14) Blood Urea Nitrogen 9 mg/dL (7-20) Creatinine 0.6 mg/dL (0.6-1.0) Estimated GFR (Cockcroft-Gault) 98.3 Glucose Level 100 mg/dL (70-99) Calcium Level 8.4 mg/dL (8.5-10.1) Objective: Assessment: 1. Total hip arthroplasty on 12/13/2019. Status Post total hip arthroplasty, continued serosanguineous drainage and hence incision and drainage done on 01/09/2020. Cultures positive for Enterooccus species,amp sensitive ESR 70 2. Prediabetic. 3. Hypertension. 4. Hypothyroidism. 5. Obstructive sleep apnea. 6. Rheumatoid arthritis. 7. Osteoarthritis. 8. anemia 9. Mild leucopenia Plan: Plan of Care ok to dc today from ID standpoint cont ampicillin and Rocephin QMonday CBC/BUN/CREAT/ESR/LFT FAX RESULTS TO [phone] to assist with home discharge antibiotics script in chart picc line care probiotics and or yogurt s/e of abx discussed appt with [facility] January 31 2020 at 2 pm [phone] all questions answered, pt will need atleast 6 weeks of treatment of IV abx local wound/vac care per ortho team PT and OT per ortho team d/ w at bedside d/w nursing NEETA AYON MD Jan 16, 2020 10:23
[2020-01-16] MEDS: cefTRIAXone IV Push 2 GM VIAL. IVP SCH (10:24)
--- NOTE | 2020-01-16 10:29 | PDOC ---
ORTHO PROGRESS NOTES Subjective Patient with no complaint of pain and wishes to go home. Post-op Day: 7 Procedure I&D Left Hip Wound Vitals Vital Signs Date Time Temp Pulse Resp B/P (MAP) Pulse Ox O2 Delivery O2 Flow Rate FiO2 01/16/20 08:05 Room Air 01/16/20 08:05 84 111/73 01/16/20 07:00 98.2 18 96 98.2 01/16/20 03:19 2.0 Labs Laboratory Tests Test 01/14/20 12:50 01/16/20 06:15 Vancomycin Level Trough 15.8 mcg/mL (10.0-20.0) Vancomycin Last Dose Date 01/13/20 Vancomycin Last Dose Time 0100 White Blood Count 3.7 x10^3/uL (4.0-11.0) Red Blood Count 2.69 x10^6/uL (3.50-5.40) Hemoglobin 8.1 g/dL (12.0-15.5) Hematocrit 23.8 % (36.0-47.0) Mean Corpuscular Volume 88 fL (79-100) Mean Corpuscular Hemoglobin 30 pg (25-35) Mean Corpuscular Hemoglobin Concent 34 g/dL (31-37) Red Cell Distribution Width 14.5 % (11.5-14.5) Platelet Count 214 x10^3/uL (140-400) Neutrophils (%) (Auto) 69 % (31-73) Lymphocytes (%) (Auto) 19 % (24-48) Monocytes (%) (Auto) 8 % (0-9) Eosinophils (%) (Auto) 3 % (0-3) Basophils (%) (Auto) 0 % (0-3) Neutrophils # (Auto) 2.6 x10^3/uL (1.8-7.7) Lymphocytes # (Auto) 0.7 x10^3/uL (1.0-4.8) Monocytes # (Auto) 0.3 x10^3/uL (0.0-1.1) Eosinophils # (Auto) 0.1 x10^3/uL (0.0-0.7) Basophils # (Auto) 0.0 x10^3/uL (0.0-0.2) Erythrocyte Sedimentation Rate 70 (0-25) Prothrombin Time 24.6 SEC (11.7-14.0) Prothromb Time International Ratio 2.2 (0.8-1.1) Sodium Level 144 mmol/L (136-145) Potassium Level 3.4 mmol/L (3.5-5.1) Chloride Level 109 mmol/L (98-107) Carbon Dioxide Level 31 mmol/L (21-32) Anion Gap 4 (6-14) Blood Urea Nitrogen 9 mg/dL (7-20) Creatinine 0.6 mg/dL (0.6-1.0) Estimated GFR (Cockcroft-Gault) 98.3 Glucose Level 100 mg/dL (70-99) Calcium Level 8.4 mg/dL (8.5-10.1) Laboratory Tests Test 01/16/20 06:15 White Blood Count 3.7 x10^3/uL (4.0-11.0) Red Blood Count 2.69 x10^6/uL (3.50-5.40) Hemoglobin 8.1 g/dL (12.0-15.5) Hematocrit 23.8 % (36.0-47.0) Mean Corpuscular Volume 88 fL (79-100) Mean Corpuscular Hemoglobin 30 pg (25-35) Mean Corpuscular Hemoglobin Concent 34 g/dL (31-37) Red Cell Distribution Width 14.5 % (11.5-14.5) Platelet Count 214 x10^3/uL (140-400) Neutrophils (%) (Auto) 69 % (31-73) Lymphocytes (%) (Auto) 19 % (24-48) Monocytes (%) (Auto) 8 % (0-9) Eosinophils (%) (Auto) 3 % (0-3) Basophils (%) (Auto) 0 % (0-3) Neutrophils # (Auto) 2.6 x10^3/uL (1.8-7.7) Lymphocytes # (Auto) 0.7 x10^3/uL (1.0-4.8) Monocytes # (Auto) 0.3 x10^3/uL (0.0-1.1) Eosinophils # (Auto) 0.1 x10^3/uL (0.0-0.7) Basophils # (Auto) 0.0 x10^3/uL (0.0-0.2) Erythrocyte Sedimentation Rate 70 (0-25) Prothrombin Time 24.6 SEC (11.7-14.0) Prothromb Time International Ratio 2.2 (0.8-1.1) Sodium Level 144 mmol/L (136-145) Potassium Level 3.4 mmol/L (3.5-5.1) Chloride Level 109 mmol/L (98-107) Carbon Dioxide Level 31 mmol/L (21-32) Anion Gap 4 (6-14) Blood Urea Nitrogen 9 mg/dL (7-20) Creatinine 0.6 mg/dL (0.6-1.0) Estimated GFR (Cockcroft-Gault) 98.3 Glucose Level 100 mg/dL (70-99) Calcium Level 8.4 mg/dL (8.5-10.1) Notes Awake and alert Assessment and Plan POD # 7 S/P L hip superficial wound and I&D wound vac in place ID treating for infection calf soft and nontender motor and sensation intact distally LLE Home soon with outpatient care followup in 1 week in clinic VICTOR MANUEL HERNANDEZ APRN Jan 16, 2020 10:29
[2020-01-16 11:00] VITALS: BP 137/53
[2020-01-16 15:00] VITALS: BP 132/43
[2020-01-16] MEDS ORDERED: POTASSIUM CHLORIDE 20 MEQ TABLET.ER. PO ONE (15:30)
[2020-01-16] MEDS: WARFARIN 5 MG TABLET. PO SCH (16:35)
--- NOTE | 2020-01-16 20:22 | NUR ---
Pt discharged home with home health. Discharge instructions and prescriptions discussed. Pt verbalized understanding. Lit provided infusion education. PICC dressing changed. Previna intact. Pt packed belongings including abx boxes. Assisted to wheelchair and was taken to main entrance and secured in vehicle with .
== END 2020-01-16 20:15 | disposition home health service (06) | DRG 903 ==
LOC: 4 NORTH 12:56 → INTOOBSV 12:56 → OBSVTOIN 01-10 17:11
PROVIDERS: ADMIT Orthopaedic Surgery; ATTEND Orthopaedic Surgery
PROC: 0JBM0ZZ Excision of Left Upper Leg Subcutaneous Tissue and Fascia, Open Approach (ICD-10-PCS; principal; 2020-01-09 17:00)
PROC: 02HV33Z Insertion of Infusion Device into Superior Vena Cava, Percutaneous Approach (ICD-10-PCS; 2020-01-16)
PROC: B548ZZA Ultrasonography of Superior Vena Cava, Guidance (ICD-10-PCS; 2020-01-16)
PROC: B5181ZA Fluoroscopy of Superior Vena Cava using Low Osmolar Contrast, Guidance (ICD-10-PCS; 2020-01-16)
DX: L76.34 Postprocedural seroma of skin and subcutaneous tissue following other procedure (principal); L76.32 Postprocedural hematoma of skin and subcutaneous tissue following other procedure; B95.2 Enterococcus as the cause of diseases classified elsewhere; D64.9 Anemia, unspecified; E11.9 Type 2 diabetes mellitus without complications; E89.0 Postprocedural hypothyroidism; M06.9 Rheumatoid arthritis, unspecified; G47.33 Obstructive sleep apnea (adult) (pediatric); I10 Essential (primary) hypertension; J45.909 Unspecified asthma, uncomplicated; M19.90 Unspecified osteoarthritis, unspecified site; Z86.73 Personal history of transient ischemic attack (TIA), and cerebral infarction without residual deficits; Z96.642 Presence of left artificial hip joint; Z96.653 Presence of artificial knee joint, bilateral; Y83.8 Other surgical procedures as the cause of abnormal reaction of the patient, or of later complication, without mention of misadventure at the time of the procedure; Y92.89 Other specified places as the place of occurrence of the external cause
CPT/HCPCS: 36415; 36573; 77001; 80048; 80051; 80053; 80202; 82565; 82962; 84145; 85014; 85018; 85025; 85610; 85651; 86140; 87071; 87075; 87186; 94640; 99285; A7015; C1713; C1751; C1892; G0378; G0379; J0290; J0690; J0696; J1100; J2001; J2370; J2405; J2543; J2704; J2710; J3010; J3370; J3490; J7030; J7040; J7120; J7613; 97110; 97535

== ENCOUNTER → 2020-01-23 | Outpatient (CLI) | payer MEDICARE ==
[2020-01-16 15:00] VITALS: BP 132/43
[2020-01-23 15:28] LABS: BASO % 0 % (0-3); EOS # 0.1 x10^3/uL (0.0-0.7); EOS % 3 % (0-3); HEMATOCRIT 23.7 % (36.0-47.0); HEMOGLOBIN 8.1 g/dL (12.0-15.5); LYMPH % 22 % (24-48); MEAN CORPUSCULAR HEMOGLOBIN 30 pg (25-35); MEAN CORPUSCULAR HGB CONC 34 g/dL (31-37); MEAN CORPUSCULAR VOLUME 88 fL (79-100); MONO # 0.5 x10^3/uL (0.0-1.1); MONO % 10 % (0-9); NEUT # 2.9 x10^3/uL (1.8-7.7); NEUT % 65 % (31-73); PLATELET COUNT 272 x10^3/uL (140-400); RED CELL DISTRIBUTION WIDTH 14.8 % (11.5-14.5); WHITE BLOOD COUNT 4.5 x10^3/uL (4.0-11.0)
[2020-01-23 15:49] LABS: CREATININE 0.7 mg/dL (0.6-1.0); GFR 82.3; POTASSIUM 3.4 mmol/L (3.5-5.1); TOTAL BILIRUBIN 0.4 mg/dL (0.2-1.0); TOTAL PROTEIN 6.1 g/dL (6.4-8.2)
== END ==
LOC: SPEC 15:11
PROVIDERS: ATTEND Internal Medicine
DX: Z51.81 Encounter for therapeutic drug level monitoring (principal); Z79.2 Long term (current) use of antibiotics
CPT/HCPCS: 36415; 80053; 85025; 85651

== ENCOUNTER → 2020-01-30 | Outpatient (CLI) | payer MEDICARE ==
[2020-01-16 15:00] VITALS: BP 132/43
[2020-01-30 15:38] LABS: BASO % 0 % (0-3); EOS # 0.2 x10^3/uL (0.0-0.7); EOS % 4 % (0-3); HEMOGLOBIN 9.1 g/dL (12.0-15.5); LYMPH # 1.1 x10^3/uL (1.0-4.8); LYMPH % 23 % (24-48); MEAN CORPUSCULAR HEMOGLOBIN 29 pg (25-35); MEAN CORPUSCULAR HGB CONC 34 g/dL (31-37); MEAN CORPUSCULAR VOLUME 87 fL (79-100); MONO # 0.3 x10^3/uL (0.0-1.1); MONO % 8 % (0-9); NEUT % 65 % (31-73); PLATELET COUNT 316 x10^3/uL (140-400); RED BLOOD COUNT 3.09 x10^6/uL (3.50-5.40); RED CELL DISTRIBUTION WIDTH 14.9 % (11.5-14.5); WHITE BLOOD COUNT 4.6 x10^3/uL (4.0-11.0)
[2020-01-30 15:54] LABS: ALBUMIN 3.3 g/dL (3.4-5.0); CALCIUM 9.4 mg/dL (8.5-10.1); CREATININE 0.7 mg/dL (0.6-1.0); GFR 82.3; POTASSIUM 4.1 mmol/L (3.5-5.1); TOTAL BILIRUBIN 0.4 mg/dL (0.2-1.0); TOTAL PROTEIN 6.7 g/dL (6.4-8.2)
== END ==
LOC: SPEC 15:22
PROVIDERS: ATTEND Internal Medicine Nephrology
DX: Z79.2 Long term (current) use of antibiotics (principal)
CPT/HCPCS: 36415; 80053; 85025; 85651

== ENCOUNTER → 2020-02-06 | Outpatient (CLI) | payer MEDICARE ==
[2020-01-16 15:00] VITALS: BP 132/43
[2020-02-06 11:23] LABS: BASO % 1 % (0-3); EOS # 0.1 x10^3/uL (0.0-0.7); EOS % 4 % (0-3); HEMATOCRIT 27.6 % (36.0-47.0); HEMOGLOBIN 9.3 g/dL (12.0-15.5); LYMPH % 31 % (24-48); MEAN CORPUSCULAR HEMOGLOBIN 29 pg (25-35); MEAN CORPUSCULAR HGB CONC 34 g/dL (31-37); MEAN CORPUSCULAR VOLUME 87 fL (79-100); MONO # 0.3 x10^3/uL (0.0-1.1); MONO % 9 % (0-9); NEUT # 1.6 x10^3/uL (1.8-7.7); NEUT % 54 % (31-73); PLATELET COUNT 268 x10^3/uL (140-400); RED BLOOD COUNT 3.19 x10^6/uL (3.50-5.40); RED CELL DISTRIBUTION WIDTH 15.6 % (11.5-14.5)
[2020-02-06 11:27] LABS: ALBUMIN 3.2 g/dL (3.4-5.0); ALBUMIN/GLOBULIN RATIO 0.9 (1.0-1.7); CALCIUM 9.1 mg/dL (8.5-10.1); CREATININE 0.6 mg/dL (0.6-1.0); GFR 98.3; POTASSIUM 4.2 mmol/L (3.5-5.1); TOTAL BILIRUBIN 0.4 mg/dL (0.2-1.0); TOTAL PROTEIN 6.7 g/dL (6.4-8.2)
== END | disposition home or self-care (01) ==
LOC: SPEC 10:55
PROVIDERS: ATTEND Internal Medicine Nephrology
DX: T84.52XA Infection and inflammatory reaction due to internal left hip prosthesis, initial encounter (principal); Z79.2 Long term (current) use of antibiotics; X58.XXXA Exposure to other specified factors, initial encounter; Y93.89 Activity, other specified; Y92.89 Other specified places as the place of occurrence of the external cause; Y99.8 Other external cause status
CPT/HCPCS: 36415; 80053; 85025; 85651

== ENCOUNTER → 2020-02-13 | Outpatient (CLI) | payer MEDICARE ==
[2020-01-16 15:00] VITALS: BP 132/43
[2020-02-13 11:52] LABS: BASO % 1 % (0-3); EOS # 0.2 x10^3/uL (0.0-0.7); EOS % 7 % (0-3); HEMATOCRIT 28.5 % (36.0-47.0); HEMOGLOBIN 9.6 g/dL (12.0-15.5); LYMPH # 0.9 x10^3/uL (1.0-4.8); LYMPH % 30 % (24-48); MEAN CORPUSCULAR HEMOGLOBIN 29 pg (25-35); MEAN CORPUSCULAR HGB CONC 34 g/dL (31-37); MEAN CORPUSCULAR VOLUME 87 fL (79-100); MONO # 0.3 x10^3/uL (0.0-1.1); MONO % 9 % (0-9); NEUT # 1.7 x10^3/uL (1.8-7.7); NEUT % 54 % (31-73); PLATELET COUNT 225 x10^3/uL (140-400); RED BLOOD COUNT 3.26 x10^6/uL (3.50-5.40); RED CELL DISTRIBUTION WIDTH 15.7 % (11.5-14.5); WHITE BLOOD COUNT 3.1 x10^3/uL (4.0-11.0)
[2020-02-13 12:13] LABS: ALBUMIN 2.9 g/dL (3.4-5.0); CREATININE 0.6 mg/dL (0.6-1.0); GFR 98.3; POTASSIUM 3.5 mmol/L (3.5-5.1); TOTAL BILIRUBIN 0.3 mg/dL (0.2-1.0); TOTAL PROTEIN 5.9 g/dL (6.4-8.2)
== END | disposition home or self-care (01) ==
LOC: SPEC 11:35
PROVIDERS: ATTEND Internal Medicine Nephrology
DX: T84.52XA Infection and inflammatory reaction due to internal left hip prosthesis, initial encounter (principal); Z79.2 Long term (current) use of antibiotics; Y83.1 Surgical operation with implant of artificial internal device as the cause of abnormal reaction of the patient, or of later complication, without mention of misadventure at the time of the procedure; Y92.89 Other specified places as the place of occurrence of the external cause
CPT/HCPCS: 36415; 80053; 85025; 85651

== ENCOUNTER → 2020-02-20 | Outpatient (CLI) | payer MEDICARE ==
[2020-02-20 14:54] LABS: ALBUMIN 3.3 g/dL (3.4-5.0); ALBUMIN/GLOBULIN RATIO 1.1 (1.0-1.7); CALCIUM 9.2 mg/dL (8.5-10.1); CREATININE 0.6 mg/dL (0.6-1.0); GFR 98.3; POTASSIUM 4.1 mmol/L (3.5-5.1); TOTAL BILIRUBIN 0.4 mg/dL (0.2-1.0); TOTAL PROTEIN 6.3 g/dL (6.4-8.2)
== END | disposition home or self-care (01) ==
LOC: SPEC 14:19
PROVIDERS: ATTEND Internal Medicine Nephrology
DX: T84.52XA Infection and inflammatory reaction due to internal left hip prosthesis, initial encounter (principal); Y83.8 Other surgical procedures as the cause of abnormal reaction of the patient, or of later complication, without mention of misadventure at the time of the procedure; Y92.89 Other specified places as the place of occurrence of the external cause; Z79.2 Long term (current) use of antibiotics
CPT/HCPCS: 36415; 80053; 85651

== ENCOUNTER → 2020-02-27 | Outpatient (CLI) | payer MEDICARE ==
[2020-02-27 12:14] LABS: BASO % 1 % (0-3); EOS # 0.2 x10^3/uL (0.0-0.7); EOS % 5 % (0-3); HEMOGLOBIN 10.2 g/dL (12.0-15.5); LYMPH % 29 % (24-48); MEAN CORPUSCULAR HEMOGLOBIN 29 pg (25-35); MEAN CORPUSCULAR HGB CONC 34 g/dL (31-37); MEAN CORPUSCULAR VOLUME 86 fL (79-100); MONO # 0.3 x10^3/uL (0.0-1.1); MONO % 9 % (0-9); NEUT % 56 % (31-73); PLATELET COUNT 194 x10^3/uL (140-400); RED BLOOD COUNT 3.49 x10^6/uL (3.50-5.40); RED CELL DISTRIBUTION WIDTH 15.8 % (11.5-14.5); WHITE BLOOD COUNT 3.5 x10^3/uL (4.0-11.0)
[2020-02-27 12:26] LABS: ALBUMIN 3.3 g/dL (3.4-5.0); CALCIUM 9.1 mg/dL (8.5-10.1); CREATININE 0.6 mg/dL (0.6-1.0); GFR 98.3; POTASSIUM 3.8 mmol/L (3.5-5.1); TOTAL BILIRUBIN 0.3 mg/dL (0.2-1.0); TOTAL PROTEIN 6.6 g/dL (6.4-8.2)
== END ==
LOC: SPEC 11:55
PROVIDERS: ATTEND Internal Medicine Infectious Disease
DX: T84.52XA Infection and inflammatory reaction due to internal left hip prosthesis, initial encounter (principal); Y83.8 Other surgical procedures as the cause of abnormal reaction of the patient, or of later complication, without mention of misadventure at the time of the procedure; Y92.89 Other specified places as the place of occurrence of the external cause
CPT/HCPCS: 36415; 80053; 85025; 85651

== ENCOUNTER → 2020-11-29 | Outpatient (CLI) | payer MEDICARE ==
[~2020-11-29] MED LIST changes: -HYDR50TA6 PO; +HYDR50TA9 PO; -OMEP40CA45 PO; +OMEP40CA7 PO
--- NOTE | 2020-11-29 16:20 | KCIC ---
Bilateral digital screening mammograms and tomosynthesis Reason for examination: Routine screening. Comparison is made to previous study dated November 28, 2019 and priors Routine CC and MLO digital views obtained. Interpretation was made with the benefit of CAD. The skin and nipples show no abnormalities. No abnormal lymph nodes are seen. The breast parenchyma i s scattered fibroglandular elements. (Breast density: Category B.) There are no suspicious masses, gibbs spicious calcifications or architectural distortions. Inverted left nipple patient reports as chronic and is stable to all the prior studies for several years considered benign. Right upper outer breast mid depth intramammary lymph node is stable, benign. Left outer breast intramammary lymph node is st able, benign. Impression: Negative mammogram. Recommend routine screening. BI-RADS Category 2: Benign. "Our facility is accredited by the [employer] Mammography Program." This patient's information has been entered into a reminder system for the patient to be notified wit h the results of her examination and a target date for the next mammogram. Electronically signed by: James Sandhu MD (11/29/2020 4:17 PM) [id number]
== END ==
LOC: KCIC MAMMO 12:19
PROVIDERS: ATTEND Obstetrics & Gynecology
DX: Z12.31 Encounter for screening mammogram for malignant neoplasm of breast (principal)
CPT/HCPCS: 77063; 77067

== ENCOUNTER → 2021-08-09 | Outpatient (CLI) | payer MEDICARE ==
[~2021-08-09] MED LIST changes: +LIDOCAINE 1% Multi-Dose 20 ML VIAL. INJ ONE
--- NOTE | 2021-08-09 10:54 | RAD ---
EXAM: Sonographic guided right thyroid fine-needle aspiration. HISTORY: 76-year-old female presents for fine-needle aspiration of a right thyroid nodule demonstrate d on a study performed at an outside facility. Fine-needle aspiration of this nodule on 11/11/2019 de monstrated benign findings. However, this nodule has increased in size and request is made for repeat fine-needle aspiration. TECHNIQUE: The risks of the procedure discussed with the patient and written and verbal consent was o btained. A timeout was performed. Sonographic imaging of the right thyroid lobe was performed and a d ominant predominantly isoechoic nodule with internal calcification was identified. The skin in this l ocation was sterilely prepped, draped and infiltrated with 1 percent lidocaine. Multiple passes were made into the nodule using 25-gauge needles and the aspirate was deemed suitable for interpretation. Manual compression was maintained until hemostasis achieved. A sterile bandage was placed. The patien t tolerated the procedure without complication. IMPRESSION: Sonographic guided fine-needle aspiration of a dominant right thyroid nodule. An addendum to this report will be submitted when pathology results are available. Electronically signed by: Natacha Biswas MD (08/09/2021 10:51 AM) [id number]
--- NOTE | 2021-08-13 16:10 | PATHOLOGY ---
Note [facility] Accession Number: [id number] TESTS RESULT FLAG UNITS REF RANGE LAB Clinician Provided Cytology Information No. of containers..01 Other (Miscellaneous) Source: RIGHT THYROID DIAGNOSIS: RIGHT THYROID NEGATIVE FOR MALIGNANT CELLS. B[place] CATEGORY II. SPECIMEN CONSISTS OF BENIGN FOLLICULAR CELLS, HEMOSIDERIN-LADEN MACROPHAGES, COLLOID, AND BLOOD. 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 Pathologist ICD10: 02 E04.1 Signed out by: Jet Benz MD, Pathologist NPI- [id number] Performed by: Haydee Wiseman, Hospice Plan Administrator ([facility]) Gross description: 32 ML, LIGHT RED, CLEAR /LCS 08/13/2021 1426 Local FLAG LEGEND: L-Low Normal,H-High Normal,LL-Alert Low,HH-Alert High <-Panic Low,>-Panic High,A-Abnormal,AA-Critical Abnormal Performed at: [facility] [place] [address] [place] [address] Carlos Cheatham MD, [address] [facility] [address] [place] [address] Jet Benz MD, Specimen Comment: A courtesy copy of this report has been sent to [phone], [phone] Specimen Comment: [id number] Specimen Comment: Report sent to DR. ORDOÑEZ / DR LEMUS Performed at: 01 [facility] [place] [address], [place], [place] [id number] MD Carlos Cheatham MD Phone: [phone]
== END | disposition home or self-care (01) ==
LOC: US 09:41
PROVIDERS: ATTEND Family Medicine
DX: E04.1 Nontoxic single thyroid nodule (principal); I10 Essential (primary) hypertension; E78.00 Pure hypercholesterolemia, unspecified; E66.9 Obesity, unspecified; M19.90 Unspecified osteoarthritis, unspecified site; E11.9 Type 2 diabetes mellitus without complications; E03.9 Hypothyroidism, unspecified; J45.909 Unspecified asthma, uncomplicated; G47.30 Sleep apnea, unspecified; K21.9 Gastro-esophageal reflux disease without esophagitis; Z79.82 Long term (current) use of aspirin; Z79.84 Long term (current) use of oral hypoglycemic drugs; Z79.899 Other long term (current) drug therapy; Z79.01 Long term (current) use of anticoagulants; Z98.890 Other specified postprocedural states
CPT/HCPCS: 10005; C1819

== ENCOUNTER 2021-09-17 17:11 | Emergency (ER) | payer MEDICARE ==
[~2021-09-17] VITALS: Ht 167.6 cm; Wt 109.0 kg
[~2021-09-17 17:11] MED LIST changes: -LIDOCAINE 1% Multi-Dose 20 ML VIAL. INJ ONE
--- NOTE | 2021-09-17 17:48 | EKG ---
[facility] [address] [place] [address] Test Date: 2021-09-17 Test Time: 17:40:49 Pat Name: JEAN MÁRQUEZ Department: Room: Gender: F Room Maid: : 1945 Requested By: MICHAEL GUZMAN Order Number: [id number] Reading MD: Reji Peoples Measurements Intervals [place] Rate: 58 P: 17 IL: 188 QRS: -18 QRSD: 86 T: 66 QT: 424 QTc: 420 Interpretive Statements SINUS RHYTHM LEFTWARD AXIS T ABNORMALITY IN HIGH LATERAL LEADS ABNORMAL ECG RI6.02 No previous ECG available for comparison Electronically Signed On 09-18-2021 15:58:33 CDT by Reji Peoples
[2021-09-17 18:22] VITALS: BP 134/82
--- NOTE | 2021-09-17 18:30 | RAD ---
EXAM: CT head without contrast INDICATION: Temporary vision loss of left eye COMPARISON: None TECHNIQUE: Axial CT imaging through the head without intravenous contrast. One or more of the following individualized dose reduction techniques were utilized for this examinat ion: 1. Automated exposure control 2. Adjustment of the mA and/or kV according to patient size 3. Use of iterative reconstruction technique. FINDINGS: The ventricles and sulci are within normal limits for age. Hawk-white matter differentiation is main tained. There is no intracranial hemorrhage, acute infarct, or mass lesion. Basal cisterns are clear. The skull and scalp are intact. Paranasal sinuses and mastoid air cells are clear. Globes and orbits are intact. IMPRESSION: No acute intracranial abnormality. Electronically signed by: Shila Olivares MD (09/17/2021 6:28 PM) [id number]
--- NOTE | 2021-09-17 18:48 | PHYS DOC ---
Past Medical History Past Medical History: No Pertinent History Past Surgical History: Other Smoking Status: Never Smoker Alcohol Use: None General Adult EDM: Chief Complaint: VISION PROBLEM HPI: HPI: Patient is a 76-year-old female presents to the emergency department reportedly being sent here by her hot sealing machine operator that she is seen today concerning acute vision loss from 2 weeks ago. Patient reports she was sent here because her hot sealing machine operator says she is having a stroke. Patient denies loss of vision at this time. Patient reports 2 weeks ago when she woke up she opened her eye and noticed she had decreased vision of the left eye, patient states she blinked once and opened her eye and her vision immediately returned. Patient denied any eye pain or headaches, denies syncopal episodes, dizzy spells, visual or auditory hallucinations, denies sensation that the room is spinning, denied fever or chills, nausea, vomiting, or diarrhea. Patient denies chest pain, shortness of breath. Patient reports she has received the COVID-19 virus vaccination series. Patient denies other physical complaints or physical concerns. Review of Systems: Review of Systems: 14 body systems of review of systems have been reviewed. See HPI for pertinent positives and negative responses, otherwise all other systems are negative, nonpertinent or noncontributory. Constitutional: Negative except as outlined in HPI above. Skin: Negative except as outlined in HPI above. Eyes: Negative except as outlined in HPI above. HENT: Negative except as outlined in HPI above. Respiratory: Negative except as outlined in HPI above. Cardiovascular: Negative except as outlined in HPI above. GI: Negative except as outlined in HPI above. : Negative except as outlined in HPI above. Musculoskeletal: Negative except as outlined in HPI above. Integument: Negative except as outlined in HPI above. Neurologic: Negative except as outlined in HPI above. Endocrine: Negative except as outlined in HPI above. Lymphatic: Negative except as outlined in HPI above. Psychiatric: Negative except as outlined in HPI above. Heart Score: C/O Chest Pain: No Risk Factors: Risk Factors: DM, Current or recent (<one month) smoker, HTN, HLP, family history of CAD, obesity. Risk Scores: Score 0 - 3: 2.5% MACE over next 6 weeks - Discharge Home Score 4 - 6: 20.3% MACE over next 6 weeks - Admit for Clinical Observation Score 7 - 10: 72.7% MACE over next 6 weeks - Early Invasive Strategies Allergies: Allergies: Allergies Coded Allergies Type Severity Reaction Last Updated Verified No Known Drug Allergies 09/17/21 No Physical Exam: PE: Constitutional: Well developed, well nourished, no acute distress, non-toxic appearance. 76-year-old female in no apparent distress. HENT: Normocephalic, atraumatic. Eyes: Conjunctiva normal, no discharge. PERRLA, bilateral pupils 7 mm in diameter, reports receiving Cyclogyl at eye physician office prior to arrival to the ER today, satisfactory 6 cardinal eye movements, visual acuity OD 20/40, OS 20/40, OU 20/40. Neck: Normal range of motion, no stridor. Cardiovascular: No cyanosis appreciated, distal cap refill less than 2 seconds. Lungs & Thorax: Patient is in no respiratory distress, no audible adventitious lung sounds appreciated. Abdomen: Nontender, no abnormalities noted. Skin: Warm, dry, no erythema, no rash. Back: No tenderness, no deformities. Extremities: No tenderness, no cyanosis, no clubbing, ROM intact, no edema. Neurologic: Alert and oriented X 3, normal motor function, normal sensory function, no focal deficits noted. NIHSS stroke scale equals 0. Psychologic: Affect normal, judgement normal, mood normal. Current Patient Data: Vital Signs: Vital Signs Date Time Temp Pulse Resp B/P (MAP) Pulse Ox O2 Delivery O2 Flow Rate FiO2 09/17/21 17:22 66 140/64 (89) 100 09/17/21 17:15 98.2 16 Room Air 98.2 EKG: EKG: EKG performed at 1740 by ED nursing staff shows a normal sinus rhythm with a leftward axis deviation, no other ectopy appreciated, heart rate 58 bpm, SC interval 0.188, QTc interval 0.420, no acute STEMI, no ACS, no acute ischemia appreciated, EKG interpreted by ED attending physician Dr. Mak. Radiology/Procedures: Radiology/Procedures: PATIENT: JEAN MÁRQUEZ ACCOUNT: [id number] : 1945 LOCATION: ER AGE: 76 SEX: F EXAM STATUS: PRE ER ORD. PHYSICIAN: ADAMOVICH,NEEMA MILITARY COOK REASON: Temporary vision loss of left eye PROCEDURE: CT HEAD WO CONTRAST EXAM: CT head without contrast INDICATION: Temporary vision loss of left eye COMPARISON: None TECHNIQUE: Axial CT imaging through the head without intravenous contrast. One or more of the following individualized dose reduction techniques were utilized for this examination: 1. Automated exposure control 2. Adjustment of the mA and/or kV according to patient size 3. Use of iterative reconstruction technique. FINDINGS: The ventricles and sulci are within normal limits for age. Hawk-white matter differentiation is maintained. There is no intracranial hemorrhage, acute infarct, or mass lesion. Basal cisterns are clear. The skull and scalp are intact. Paranasal sinuses and mastoid air cells are clear. Globes and orbits are intact. IMPRESSION: No acute intracranial abnormality. Electronically signed by: Shila Olivares MD (09/17/2021 6:28 PM) [id number] Course & Med Decision Making: Course & Med Decision Making Pertinent Labs and Imaging studies reviewed. (See chart for details) 76-year-old female, vital signs reviewed, presents emergency department concerning acute vision loss from 2 weeks ago. Patient was sent here by hot sealing machine operator concerning she may have a stroke versus CVA versus TIA, a NIHSS stroke scale was performed immediately upon patient arrival to ED examination room equals 0. Physical examination very low likelihood of TIA or CVA or neurological event, patient's description of event is as follows "I woke up from sleeping I think I did not see out of my left eye, I blinked and my vision was there. "While patient does have history of DM type II, hypertension, and does have risk for neurological event, patient's description of the event does not seem likely for a TIA or CVA, patient did not have eye pain or headache pain. Not experience weakness or visual disturbances after blinking. Will order CT scan of head, EKG. EKG unremarkable, CT scan within normal limits, no acute process appreciated as interpreted by house radiologist. Discussed findings with patient, recommended follow-up with primary care soon for reevaluation, strict return to ER imm ediately for any neurological symptoms, patient is amenable to ED discharge planning. Discussed with the patient all findings and diagnostic testing as well as the need to follow-up with their primary care provider for further evaluation and treatment or return to the ED if any new or worsening symptoms. Strict return precautions were also discussed at length, the patient voiced understanding and agreement with the discharge planning. The patient was nontoxic in appearance, in no apparent distress, and hemodynamically stable at the time of disposition. Dragon Disclaimer: Dragon Disclaimer: This electronic medical record was generated, in whole or in part, using a voice recognition dictation system. NIHSS Stroke Scale NIH Stroke Scale: NIH Stroke Scale Response (Comments) Value Level of Consciousness: 0 Alert/Responsive 0 LOC Questions: 0 Answers both correctly 0 LOC Commands: 0 Performs both tasks 0 Best Gaze: 0 Normal 0 Visual: 0 No visual loss 0 Facial Palsy: 0 Normal, symmetrical 0 Motor - Left Arm 0 No drift 0 Motor - Right Arm 0 No drift 0 Motor - Left Leg 0 No drift 0 Motor: Right Leg 0 No drift 0 Limb Ataxia: 0 Absent 0 Sensory: 0 No loss 0 Best Language: 0 Normal 0 Dysathria: 0 Normal 0 Extinction and Inattention: 0 Normal 0 Total 0 Departure Departure Impression: Primary Impression: Feared condition not demonstrated Disposition: 01 HOME / SELF CARE / HOMELESS Condition: GOOD Referrals: MICKI ORDOÑEZ MD (PCP) Additional Instructions: You were seen today in the emergency department for a decreased vision experience from 2 weeks ago, your hot sealing machine operator had feared you may have a neurological event such as a TIA or CVA. You are not showing any symptoms or signs that would suggest a TIA or a CVA, a thorough stroke scale was performed today that was nonconcerning for a TIA or a CVA. An EKG was done today that did not show any concerning findings of heart problems, a CT scan of your head was done and did not show any signs of stroke or brain bleeds or brain abnormalities or brain tumors. As we discussed I feel it is safe for you to go home, please follow-up with your primary care physician Dr. Wilde this week for reexamination. Please return to the emergency department immediately for dizziness, syncopal episodes, facial weakness or drooping, left-sided or right- sided weakness of your arms or legs, passing out spells. Thank you for visiting our Emergency Department. It was a pleasure taking care of you today in the emergency department and we appreciate you trusting us with your care. If any additional problems come up don't hesitate to return to visit us. Please follow up with your primary care provider so they can plan additional care if needed and know about the problem that you had. If symptoms worsen come back to the Emergency Department. Any concerning symptoms that start such as chest pain, shortness of air, weakness or numbness on one side of the body, running high fevers or any other concerning symptoms return to the ER. EMERGENCY DEPARTMENT GENERAL DISCHARGE INSTRUCTIONS Thank you for coming to [facility] Emergency Department (ED) today and trusting us with you care. We trust that you had a positive experience in our Emergency Department. If you wish to speak to the department management, you may call the Director at [phone]. YOUR FOLLOW UP INSTRUCTIONS ARE FOLLOWS: 1. Do you have a private Doctor? If you do not have a private doctor, please ask for a resource list of physicians or clinics that may be able to assist you with follow up care. 2. The Emergency Physicain has interpreted your x-rays. The X-Ray specialist will also review them. If there is a change in the findings, you will be notified in 48 hours when at all possible. 3. A lab test or culture has been done, your results will be reviewed and you will be notified if you need a change in treatment. ADDITIONAL INSTRUCTIONS AND INFORMATION: 1. Your care today has been supervised by a physician who is specially trained in emergency care. Many problems require more than one evaluation for a complete diagnosis and treatment. We recommend that you schedule your follow up appointment as recommended to ensure complete treatment of you illness or injury. If you are unable to obtain follow up care and continue to have a problem, or if your condition worsens, we recommend that you return to the ED. 2. We are not able to safely determine your condition over the phone nor are we able to give sound medical advice over the phone. For these safety reasons, if you call for medical advice we will ask you to come to the ED for further evaluation. 3. If you have any questions regarding these discharge instructions please call the ED at [phone]. SAFETY INFORMATION: In the interest of safety, wellness, and injury prevention; we encourage you to wear your sealbelt, if you smoke; quite smoking, and we encourage family to use a protective helmet for bicycling and other sporting events that present an increased risk for head injury. IF YOUR SYMPTOMS WORSEN OR NEW SYMPTOMS DEVELOP, OR YOU HAVE CONCERNS ABOUT YOUR CONDITION; OR IF YOUR CONDITION WORSENS WHILE YOU ARE WAITING FOR YOUR FOLLOW UP APPOINTMENT; EITHER CONTACT YOUR PRIMARY CARE DOCTOR, THE PHYSICIAN WHOSE NAME AND NUMBER YOU WERE GIVEN, OR RETURN TO THE ED IMMEDIATELY. GARTH MORRISON APRN Sep 17, 2021 18:48
== END 2021-09-17 18:52 | disposition home or self-care (01) ==
LOC: ER 17:11
DX: H54.7 Unspecified visual loss (principal); R51.9 Headache, unspecified
CPT/HCPCS: 70450; 93005; 99284-25

== ENCOUNTER → 2021-12-10 | Outpatient (CLI) | payer MEDICARE ==
--- NOTE | 2021-12-10 12:08 | KCIC ---
Bilateral digital screening mammograms with 3-D tomosynthesis: Reason for examination: Routine screening. Comparison is made to previous studies dated back to 08/07/2016. Bilateral mammograms in CC and oblique projections were obtained with 2-D imaging and 3-D tomosynthes is imaging on a Siemens Inspiration unit and reviewed on the workstation. Interpretation was made wit h the benefit of CAD. The skin and nipples show no abnormalities. No abnormal axillary lymph nodes are seen. The breast par enchyma shows scattered fatty and fibroglandular density. (Breast density: Category B.) There continu e to be small nodular parenchymal densities bilaterally which appear to be stable and likely represen t intramammary lymph nodes. There are no new dominant masses, suspicious calcifications or architectu ral distortion. Impression: No evidence of malignancy. Recommend routine screening. BI-RAD Category 2: Benign. "Our facility is accredited by the [employer] Mammography Program." This patient's information has been entered into a reminder system for the patient to be notified wit h the results of her examination and a target date for the next mammogram. Electronically signed by: Tori Garcia MD (12/10/2021 12:06 PM) [id number]
== END ==
LOC: KCIC MAMMO 10:48
PROVIDERS: ATTEND Family Medicine
DX: Z12.31 Encounter for screening mammogram for malignant neoplasm of breast (principal)
CPT/HCPCS: 77063; 77067